=== PATIENT | male | born 1955 | race Caucasian/White ===

== ENCOUNTER 2023-09-05 18:34 | Inpatient (IN) | payer MEDICARE, OTHER, SELFPAY ==
[2023-09-05] VITALS (8 sets, daily range): BP systolic 101–128; BP diastolic 51–68; PULSE 73–80; BMI 23.2; BMI 24.1
--- NOTE | 2023-09-05 15:35 | ED.GENMED ---
History of Present Illness
General
Chief Complaint: Cold/Flu/URI Symptoms
Time Seen by Provider: 09/05/23 15:35
Travel History
Have you had any contact with someone who has COVID-19?: No
Do you have any symptoms of coronavirus? Fever > 100 degrees, chills, cough, shortness of breath, sore throat, loss of taste or smell, muscle aches, or headache?: No
History of Present Illness
History of Present Illness:
HPI: Approximately 3 weeks ago, the patient started having dark urine, general unwell feeling along with some chills. also reports some exertional weakness. The patient denies any shortness of breath or chest pain. He says that he had a
similar event approximately 6 years ago after a tick bite and had a rash and was diagnosed with Lyme disease however at this time he does not have a rash nor any known tick bite. He was in [facility] starting about 2 weeks ago and came back last
night. Early in the trip, he passed out and struck his head but did not go to the hospital. He has not had any neurologic symptoms since that time. He was concerned that he was dehydrated. He states he had a COVID test recently that was negative.
EXAM:
GENERAL: Appears somewhat pale and just slightly weak generally
HEENT: Moist oral mucosa
CARDIOVASCULAR: No murmurs, normal heart rate, regular rhythm, No chest wall tenderness
PULMONARY: No respiratory distress, breath sounds are clear and equal
ABDOMEN: Soft with no peritoneal signs, no tenderness
NEUROLOGIC: Excellent strength all extremities, no coordination deficits
PSYCHIATRIC: Appropriate mental status, normal insight and judgement
EXTREMITIES: Nontender, no edema, moves all extremities equally
SKIN: Appears somewhat pale
TIME OF INITIAL ENCOUNTER: 3:30 PM
NUMBER AND COMPLEXITY OF PROBLEMS ADDRESSED AT THE ENCOUNTER
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
� Acute Exacerbation and/or Progression of Chronic Illness: This is an acute problem
� Differential Diagnosis includes: Bacteremia, viral syndrome prolonged, anemia, ELISABETH, pneumonia, UTI, line
AMOUNT AND/OR COMPLEXITY OF DATA TO BE REVIEWED AND ANALYZED
� I performed an independent evaluation of and my interpretation is:
EKG:
CT:
X-rays: Chest x-ray shows no acute abnormality
Laboratory Studies: White count 4.7, hemoglobin of 7.1, platelet 173, sodium 124, iron 46, TIBC 245, percent saturation 18%, ferritin 1460, no evidence of UTI on urinalysis
Other:
� Review of other/old records: No patient had endoscopy that showed gastritis in 2016
� Clinical information was obtained by an independent historian: Spoke to at bedside
� Prescriptions/Medications Considered but not given:
� Further testing considered but not performed:
RISK OF COMPLICATIONS AND/OR MORBIDITY OR MORTALITY OF PATIENT MANAGEMENT
� Social determinants of health affecting care: Lives at home, recently traveled to [facility]
� Discussion with other providers: Hospitalist for admission
� Escalation of care including admission/observation vs risk of discharge considered: The patient is hemodynamically stable but is found to have a hemoglobin of 7.1. He has heme-negative brown stool. Iron levels are just
slightly low. Ferritin is high. Some urobilinogen noted on urinalysis and he does have a total bili of 2.3 but otherwise LFTs relatively unremarkable with exception of low albumin. LDH elevated. Haptoglobin pending which is a send out.
Phy Exam
Physical Exam
Physical Exam:
See HPI
Course
Orders/Labs/Results
Orders:
Orders
09/05/23 15:47
0.9% Sodium Chloride 1000 ml [Nss] 1,000 ml IV BOLUS
09/05/23 15:48
CR Chest - 2 Views Urgent
Comment:
Reason For Exam: chills
09/05/23 16:12
Complete Blood Count/With Diff Urgent
Comprehensive Metabolic Panel Urgent
Ferritin Urgent
Comment: ADD
Iron Urgent
Comment: ADD
LDH Urgent
Comment: ADD ON
Lactic Acid Q4H
Comment: CANCEL 2nd LACTIC ACID IF 1st LACTIC ACID IS LESS THAN 2
Lyme Progressive Urgent
Serum Osmolality Urgent
Comment: ADD
Total Iron Binding Urgent
Comment: ADD
Blood Culture Q30M
MILADIS Source: Blood/Venous
Specimen Description:
Blood Culture Q30M
MILADIS Source: Blood/Venous
Specimen Description:
09/05/23 16:30
Add On- LAB Urgent
Tests Added?: iron panel, ferritin
* Blood Bank Products Urgent
Blood Bank Products: *Packed RBC Leuko(PRBC's)
Quantity: 2
Transfuse Today: Yes
Reason: Anemia
09/05/23 16:46
Type+Screen Urgent
09/05/23 16:52
Add On- LAB Urgent
Tests Added?: osm
09/05/23 17:02
Osmolality, Random Urine Urgent
Date Specimen was Collected: 09/05/23
Time Specimen was Collected: 16:59
Urinalysis Reflex To Culture Urgent
Date Specimen was Collected: 09/05/23
Time Specimen was Collected: 16:59
Urine Microscopic Reflex Cult Urgent
Urine Sodium Urgent
Date Specimen was Collected: 09/05/23
Time Specimen was Collected: 16:59
09/05/23 17:05
Add On- LAB Urgent
Tests Added?: ldh, haptoglobin
09/05/23 18:20
Admit/Transfer Patient As Directed
Co-Sign Provider:
Level of Care: Inpatient admission
Assign to:: Medical/Surgical
Physician / Group: Hospitalist
Diagnosis: Anemia
Reason for Hospitalization: Symptomatic anemia
Expected length of stay greater than two midnights?: Yes
ELOS- Estimated Length of Stay in days: 3
I certify the patient meets the requirements for IP care: Yes
09/05/23 18:22
Code Status As Directed
Resuscitation Status: Full Code
09/05/23 20:00
Lactic Acid Q4H
Comment: CANCEL 2nd LACTIC ACID IF 1st LACTIC ACID IS LESS THAN 2
Abnormal Lab Results
09/05/23 09/05/23 09/05/23
16:12 16:46 17:02
WBC 4.7 L 10^3/uL
(4.8-10.8)
RBC 2.32 L 10^6/uL
(4.70-6.10)
Hgb 7.1 L g/dL
(13.0-18.0)
Hct 20.4 L* %
(39.0-52.0)
RDW 22.0 H %
(11.5-14.5)
Abs Immat Gran (auto) 0.1 H 10^3/uL
(0-0.05)
Absolute Lymphs (auto) 1.1 L 10^3/uL
(1.2-3.4)
Absolute Monos (auto) 0.8 H 10^3/uL
(0.1-0.6)
Immature Gran % 1.1 H %
(0-0.5)
Monocytes % 16.0 H %
(1.7-9.3)
Sodium 124 L mmol/L
(135-145)
Chloride 96 L mmol/L
(98-107)
Glucose 105 H mg/dl
(70-99)
Serum Osmolality 263 L mOsm/kg
(275-300)
Iron 46 L ug/dl
(49-181)
TIBC 245 L ug/dl
(261-462)
% Saturation 18 L %
(20-50)
Ferritin 1460.0 H ng/ml
(17.9-464.0)
Total Bilirubin 2.3 H mg/dl
(0.2-1.3)
Lactate Dehydrogenase 351 H U/L
(120-246)
Total Protein 6.2 L g/dl
(6.3-8.2)
Albumin 2.8 L g/dl
(3.5-5.0)
Ur Occult Blood Reflex 1+ A
(Negative)
Urine Urobilinogen 2+ A
(Neg - 1+)
Urine Bacteria (Reflex) Few A
(Negative)
Urine Osmolality 227 L mOsm/kg
(300-900)
Urine Sodium 18 L mmol/L
(30-90)
Antibody Screen Positive A
(Negative)
09/05/23 16:12
09/05/23 16:12
Vital Signs
Initial and Last Documented VS:
Initial Vital Signs
Temp Pulse Resp BP Pulse Ox
99.0 F 65 16 109/60 98
09/05/23 13:55 09/05/23 13:55 09/05/23 13:55 09/05/23 13:55 09/05/23 13:55
Last Documented Vital Signs
Temp Pulse Resp BP Pulse Ox
99.0 F 68 16 108/68 99
09/05/23 13:55 09/05/23 19:00 09/05/23 19:00 09/05/23 19:00 09/05/23 19:00
*Critical Care Note
Total Time (30-74mins, 75-104mins- exclusive of procedures): Not Applicable
ED Attending Note
-
Portions of this chart may have been created with voice recognition software.� Occasional wrong word or��sound alike� substitutions may have occurred due to the inherent limitations of voice recognition software.
Discharge Plan
Departure
Patient Disposition: Admit
Date of Disposition: 09/05/23
Time of Disposition: 16:56
Presentation/result/management discussed w/ accepting MD/DO: Hospitalist
Discharge Problem:
Anemia
Interventions
Interventions:
*Risk Screen - Suicide Last Done: 09/05/23 16:11
*General Assessment Last Done: 09/05/23 16:11
*Neglect/Abuse Screening Last Done: 09/05/23 16:11
ED- Fall Risk Assessment Last Done: 09/05/23 16:11
*ED COVID-19 Vaccine History Last Done: 09/05/23 13:55
ED- Pulmonary Assessment Last Done: 09/05/23 16:11
[2023-09-05] MEDS: NSS 1000 IV ×2 (16:18→20:39)
[2023-09-05 16:25] LABS: % Basophils 0.4 % (0-2); % Eosinophils 0.2 % (0-6); % Immature Granulocytes 1.1 % (0-0.5); % Lymphocytes 24.1 % (20.5-51.1); % Neutrophils 58.2 % (42.2-75.2); Absolute Immature Granulocytes 0.1 10^3/uL (0-0.05); Absolute Lymphocytes 1.1 10^3/uL (1.2-3.4); Absolute Monocytes 0.8 10^3/uL (0.1-0.6); Absolute Neutrophils 2.7 10^3/uL (1.4-6.5); Hemoglobin 7.1 g/dL (13.0-18.0); Mean Corp Hgb Conc. 34.8 g/dL (33.0-37.0); Mean Corpuscular Hgb 30.6 pg (27.0-31.0); Mean Corpuscular Volume 87.9 fL (80.0-94.0); Mean Platelet Volume 10.4 fL (7.4-10.4); Nucleated Red Blood Cells % 0 % (-); Platelet Count 173 10^3/uL (130-400); Red Blood Cell Count 2.32 10^6/uL (4.70-6.10); White Blood Cell Count 4.7 10^3/uL (4.8-10.8)
[2023-09-05 16:26] LABS: Hematocrit 20.4 % (39.0-52.0)
[2023-09-05 16:42] LABS: Lactic Acid 1.4 mmol/L (0.7-2.0)
[2023-09-05 16:47] LABS: ALT (SGPT) 33 U/L (0-50); AST (SGOT) 58 U/L (17-59); Albumin 2.8 g/dl (3.5-5.0); Alkaline Phosphatase 67 U/L (38-126); Blood Urea Nitrogen 18 mg/dl (9-20); Calcium 8.4 mg/dl (8.4-10.2); Carbon Dioxide 23 mmol/L (22-30); Chloride 96 mmol/L (98-107); Estimated Creatinine Clearance 72 ml/min; Glucose 105 mg/dl (70-99); Potassium 4.6 mmol/L (3.5-5.1); Sodium 124 mmol/L (135-145); Total Bilirubin 2.3 mg/dl (0.2-1.3); Total Protein 6.2 g/dl (6.3-8.2); eGFR > 60.00
[2023-09-05 17:07] LABS: Iron 46 ug/dl (49-181)
[2023-09-05 17:14] LABS: Urine Albumin Negative (Neg - Trace); Urine Bilirubin Negative (Negative); Urine Character Clear (Clear); Urine Color Yellow; Urine Glucose Negative (Negative); Urine Ketone Negative (Negative); Urine Leukocyte Negative (Negative); Urine Nitrite Negative (Negative); Urine Occult Blood 1+ (Negative); Urine Specific Gravity 1.005 (<1.030); Urine Urobilinogen 2+ (Neg - 1+)
[2023-09-05 17:16] LABS: Osmolality Serum 263 mOsm/kg (275-300); Percent Saturation 18 % (20-50); Total Iron Binding Capacity 245 ug/dl (261-462)
[2023-09-05 17:22] LABS: Osmolality Urine 227 mOsm/kg (300-900)
[2023-09-05 17:23] LABS: Urine Bacteria Few (Negative); Urine Red Blood Cell 0-2 /HPF (0-2); Urine Squamous Cell 0-2 /LPF (Few); Urine White Cell 0-2 /HPF (0-5)
[2023-09-05 17:30] LABS: LDH 351 U/L (120-246)
[2023-09-05 17:30] LABS: Urine Sodium 18 mmol/L (30-90)
--- NOTE | 2023-09-05 17:50 | HPS.HSE ---
Family Physician
-
Family Physician: Edis Urrutia
Chief Complaint
-
Weakness and fever.
History of Present Illness
67 man who 3 weeks ago started having dark urine, a general unwell feeling along with some chills and exertional weakness. He denies any shortness of breath or chest pain. He says that he had a similar event approximately 6 years ago after a tick
bite and had a rash and was diagnosed with Lyme disease however at this time he does not have a rash nor any known tick bite. He has had a COVID test recently that was negative. He is vegan and has had decreased PO intake over the last few weeks
due to travel. One year ago his hemoglobin was 12. A workup was not done.
Medical History
Past Medical History
Past Medical History: Reports None
Additional Past Medical History:
High cholesterol
Essential HTN
Past Surgical History: Reports None
Social History
Tobacco: Non-smoker
Alcohol: Occasional
Drug: None
Personal:
Living: With Family
Employment: Retired
Family History
Family History: Not pertinent
Allergies / Home Medications
Allergies reflects when Allergies were last updated in [facility].
Home Medications with original date entered in [facility]
Allergy/Medication List:
Allergies
Allergy/AdvReac Type Severity Reaction Status Date / Time
No Known Allergies Allergy Unverified 09/05/23 13:53
Home Medications
Biotrue Eye Drops (Pf) 1 drp BOTH EYES DAILY 09/05/23
acetaminophen 500 mg tablet (Tylenol Extra Strength) 500 mg PO BIDPRN PRN mild pain/fever 09/05/23
aspirin 81 mg tablet,delayed release 81 mg PO DAILY 09/05/23
coenzyme Q10 100 mg capsule (CoQ-10) 100 mg PO DAILY 09/05/23
rosuvastatin 10 mg tablet 10 mg PO DAILY 09/05/23
telmisartan 20 mg tablet 20 mg PO HS 09/05/23
Review of Systems
-
History Source: Patient
A 12 point ROS was completed and negative except as noted: Yes
Physical Exam
Vital Signs
Vital Signs
Temp Pulse Resp BP Pulse Ox
99.0 F 57 14 120/65 100
09/05/23 13:55 09/05/23 16:15 09/05/23 16:15 09/05/23 16:02 09/05/23 16:15
Physical Exam
General: Well Developed, No Apparent Distress, Comfortable and Conversant
HEENT: Moist mucous membranes, Atraumatic, Good Dentition, No Ptosis, Nose Appears Normal and Ears Appear Normal
Respiratory: Clear
Cardiac: S1/S2 and Regular Rhythm
GI: Soft, Non Tender and Non Distended
Musculoskeletal: No Clubbing, No Cyanosis and No Edema
Skin: Warm and Dry; No Rash or Jaundice
Neuro: Awake, Alert, Oriented and AO x 3
Psych: Calm
Laboratory Results
-
09/05/23 16:12
09/05/23 16:12
Laboratory Results
Lactic Acid 1.4 mmol/L (0.7-2.0) 09/05/23 16:12
Total Bilirubin 2.3 mg/dl (0.2-1.3) H 09/05/23 16:12
AST 58 U/L (17-59) 09/05/23 16:12
ALT 33 U/L (0-50) 09/05/23 16:12
Alkaline Phosphatase 67 U/L (38-126) 09/05/23 16:12
Data Reviewed
-
Lab Data: Labs Reviewed by me
Impression/Plan
-
IMPRESSION:
67 man with symptomatic anemia and h/o fever.
H/H 7.1/20.4
Na 124
MCV 87.9
RDW 22.0
Iron 46 (low)
TIBC 245 (low)
%sat 18% (low)
LDH 351
Alb 2.8
total trice 2.3 (high)
Ferritin pending
PLAN:
1. Symptomatic anemia - iron studies still being processed
There's evidence of both low iron stores and red cell destruction
This could be a viral illness on top of mal-nutrition
Plan is to wait for results of remaining studies
Once all data is available, discuss results with hematology
In meantime:
transfuse two units of PRBC
IV fluids
Supportive care
Hold ASA
2. Hyponatremia - likely hypovolemic hyponatremia
IV saline
Recheck in am
3. Low albumin, likely malnutrition, however there is a concern for cancer
Other possibilities include:
GIB
Leukemia
celiac disease
Atypical infection
VCD for DVTp
Full code
[2023-09-05 20:18] LABS: Hemoglobin 7.2 g/dL (13.0-18.0)
[2023-09-05 20:22] LABS: Hematocrit 20.1 % (39.0-52.0)
[2023-09-05 20:28] LABS: Lactic Acid 0.9 mmol/L (0.7-2.0)
[2023-09-05] MEDS: PROTONIX 40 MG PO (20:38)
[2023-09-05 21:41] LABS: Folate 8.6 ng/ml (2.76-20); Vitamin B12 165 pg/ml (239-931)
[2023-09-05] MEDS: TYLENOL 500 MG PO (22:36)
--- NOTE | 2023-09-05 22:56 | PTCARENOTE ---
Received pt from ER at 2014. Pt AAOx3, VSS, ambulatory in room. Blood bank called stating blood needs to come from [place] and would take a day or two. Pt informed and agreeable. Oriented to room, call banks and plan of care.
[2023-09-06] VITALS (11 sets, daily range): BP systolic 91–122; BP diastolic 47–73; PULSE 64–102; BMI 24.1
[2023-09-06] MEDS: NSS 1000 IV ×3 (05:17→19:25)
[2023-09-06 06:04] LABS: IgA 500 mg/dl (70-400)
[2023-09-06] MEDS: PROTONIX 40 MG PO ×2 (08:13→19:18)
[2023-09-06] MEDS: REFRESH EYE DROPS (PF) 1 DROPS BOTH EYES (08:14)
[2023-09-06 08:29] LABS: % Basophils 0.4 % (0-2); % Eosinophils 0.4 % (0-6); % Immature Granulocytes 1.1 % (0-0.5); % Lymphocytes 30.5 % (20.5-51.1); % Monocytes 20.7 % (1.7-9.3); % Neutrophils 46.9 % (42.2-75.2); Absolute Immature Granulocytes 0.1 10^3/uL (0-0.05); Absolute Lymphocytes 1.4 10^3/uL (1.2-3.4); Absolute Neutrophils 2.2 10^3/uL (1.4-6.5); Mean Corp Hgb Conc. 35.8 g/dL (33.0-37.0); Mean Corpuscular Hgb 31.8 pg (27.0-31.0); Mean Corpuscular Volume 88.7 fL (80.0-94.0); Mean Platelet Volume 11.4 fL (7.4-10.4); Nucleated Red Blood Cells % 0 % (-); Platelet Count 154 10^3/uL (130-400); Red Blood Cell Count 1.95 10^6/uL (4.70-6.10); Red Cell Dist. Width 21.7 % (11.5-14.5); White Blood Cell Count 4.7 10^3/uL (4.8-10.8)
[2023-09-06 08:37] LABS: Hemoglobin 6.2 g/dL (13.0-18.0)
[2023-09-06 08:38] LABS: Hematocrit 17.3 % (39.0-52.0)
[2023-09-06 08:47] LABS: ALT (SGPT) 26 U/L (0-50); AST (SGOT) 48 U/L (17-59); Albumin 2.2 g/dl (3.5-5.0); Alkaline Phosphatase 52 U/L (38-126); Blood Urea Nitrogen 12 mg/dl (9-20); Calcium 7.9 mg/dl (8.4-10.2); Carbon Dioxide 20 mmol/L (22-30); Chloride 103 mmol/L (98-107); Estimated Creatinine Clearance 81 ml/min; Glucose 94 mg/dl (70-99); Potassium 4.4 mmol/L (3.5-5.1); Sodium 127 mmol/L (135-145); Total Bilirubin 2.6 mg/dl (0.2-1.3); Total Protein 5.3 g/dl (6.3-8.2); eGFR > 60.00
--- NOTE | 2023-09-06 11:49 | CM ---
Patient seen at bedside with present. Patient indicated that he lives with his in a 2 story home. Patient _PCP is Dr. Urrutia and he uses the [facility] in [place]. Patient has no DME and is retired and independent/driving prior to
admission. Patient indicated that he was planning on discharge home with no needs. CM will continue to follow for discharge planning needs.
Plan; home with VN vs home with no needs.
[2023-09-06] MEDS: TYLENOL 500 MG PO ×2 (13:20→22:01)
[2023-09-06 13:42] LABS: Total Cells Counted 100
[2023-09-06 13:43] LABS: Hypochromasia 2+; Lymphocytes 21 % (20-51); Monocytes 3 % (2-9); Normal RBC Morphology No; Platelets Checked Yes; Segmented Neutrophils 75 % (42-75); Target Cells 1+
[2023-09-06 14:39] LABS: Lyme Antibody Screen, EIA Presump. Positive (Negative)
[2023-09-06 15:46] LABS: Reticulocyte Count 11.1 % (0.4-2.8)
--- NOTE | 2023-09-06 17:10 | W.PN.HOSP.TC ---
Addendum entered and electronically signed by Solange Gomez MD 09/06/23 19:55:
Patient seen and examined independently--agree with plan set forth by Dr. Peñaloza with exceptions in bold
GENERAL: well developed, well nourished, male in no apparent distress
HEENT: NC/AT--sallow appearing
HEART: regular rate and rhythm, +S1, +S2--no murmurs
LUNGS : clear to auscultation bilaterally
ABDOM: soft, nontender, nondistended, + bowel sounds
EXT: no cyanosis, clubbing, or edema
NEUROLOGIC: grossly intact
Symptomatic anemia--with dark urine, elevated Tbili, fevers, iron studies c/w chronic disease--strongly suspect hemolysis as cause--Hb 7.2 yesterday, dropped to 6.2 today--reticulocyte count 11.1, haptoglobin pending--waiting for blood from [facility]--retic count added by us, smears for malaria and Babesia (due to fevers) as well as RBC morphology revealed positive Babesiosis-- vitamin B12 deficiency likely due to his vegan diet--start repletion--Positive IgA, this may represent autoimmune
process. Endomysial IgA, TTG IgG and IgA are pending--heme consult pending--will also consult ID given Babesiosis--await treatment options
Hyponatremia--likely due to poor PO intake--cont IVF--improved with fluids--Likely hypovolemic hyponatremia--Follow BMP.
Low albumin--Likely malnutrition from Vegan diet --no hx of CLL--Follow BMP
code status -- FULL CODE
Original Note:
Today's Communication/Plan
-
Continue IV fluid and monitor BMP
Blocks may positive for Babesia, ID consult
Monitor H&H while awaiting PRBC transfusion
Assessment / Plan
Assessment / Plan
ASSESSMENT: 67-year-old male admitted 09/05/2023 with symptomatic anemia (Hb 7.2) and dark urine for 2 weeks. Reports intermittent fever and chills that responds to Tylenol for the past few days. Recent travel to [place], returned 2 days ago and
feeling unwell.
Impression/Plan:
Symptomatic anemia
-Hb 7.2 yesterday, dropped to 6.2 today, HCT 17.3, RDW 21.7, reticulocyte count 11.1, haptoglobin pending.
-Iron studies most likely represents anemia of chronic disease vs acute parasitic infection vs vitamin B12 deficiency, acute blood loss less likely.
-Positive IgA, this may represent autoimmune process. Endomysial IgA, TTG IgG and IgA are pending.
-Dark urine resolved per patient.
-Peripheral blood smear positive for Babesia.
-ID consult.
-Start vitamin B12.
-Follow H&H.
-Hematology consult.
-Lyme serology pending
-Blood type A+, awaiting blood from [facility], was told it takes 1 or 2 days. Transfuse 2 units PRBC.
-Continue IV fluid.
Hyponatremia
-Improved with IV fluid.
-Likely hypovolemic hyponatremia.
-Continue IV normal saline.
-Follow BMP.
Low albumin
-Likely malnutrition vs cancer given history of CLL.
-Follow BMP
Anticipated Discharge: > 48 hours
Subjective/Interval History
-
Date of Service: September 06, 2023
Objective Data
-
Labs:
Laboratory Results
09/06/23
07:42
WBC 4.7 L
Hgb 6.2 L*
Hct 17.3 L*
Plt Count 154
Sodium 127 L
Potassium 4.4
Chloride 103
Carbon Dioxide 20 L
BUN 12
Creatinine 0.8
Glucose 94
Calcium 7.9 L
Total Bilirubin 2.6 H
AST 48
ALT 26
Alkaline Phosphatase 52
Vital Signs:
Vital Signs
Temp Pulse Resp BP Pulse Ox
101.9 F H 72 16 102/51 93
09/06/23 16:12 09/06/23 16:12 09/06/23 16:12 09/06/23 16:12 09/06/23 16:12
I&O
09/05/23 09/06/23 09/07/23
06:59 06:59 06:59
Intake Total 1000 / 1000
Balance 1000 / 1000
Review of Systems
-
History Source: Patient and Family ()
All other systems: Not reviewed unless documented
Constitutional: Reports Fatigue; Denies Fever
Respiratory: Reports No Symptoms; Denies Cough, Hemoptysis or Wheezing
Cardiac: Reports No Symptoms; Denies Chest Pain or Palpitations
Abdomen/GI: Reports No Symptoms; Denies Abdominal Pain, Nausea or Vomiting
Physical Exam
-
General: No Apparent Distress and Comfortable; Negative Pain
Respiratory: Clear to Auscultation; Negative Wheezes, Rales or Crackles
Cardiac: Regular Rhythm and S1/S2; Negative Murmur or Rub
GI: Soft, Nontender, Nondistended and Normal Bowel Sounds
Musculoskeletal: No Cyanosis and No Edema; Negative Clubbing
Skin: Warm
Neuro: Awake, Alert and AO x 3
Psych: Calm
Data Reviewed
-
Diagnostic Radiology: Report Reviewed by me and Discussed with Physician
Labs: Labs Reviewed by me and Discussed with Physician
Old Records: Reviewed
[2023-09-06] MEDS: ZITHROMAX 255 MG IV (20:39)
[2023-09-06] MEDS: VIBRAMYCIN 100 MG PO (20:46)
[2023-09-06] MEDS: MEPRON SUSPENSION 750 MG PO (20:59)
[2023-09-07] VITALS (9 sets, daily range): BP systolic 95–119; BP diastolic 54–61
[2023-09-07] MEDS: VIBRAMYCIN 100 MG PO ×2 (08:03→19:14)
[2023-09-07] MEDS: REFRESH EYE DROPS (PF) 1 DROPS BOTH EYES (08:03)
[2023-09-07] MEDS: PROTONIX 40 MG PO ×2 (08:03→19:14)
[2023-09-07] MEDS: MEPRON SUSPENSION 750 MG PO ×2 (08:04→19:13)
[2023-09-07] MEDS: CYANOCOBALAMIN 1000 MCG IM (08:04)
[2023-09-07 08:51] LABS: % Basophils 0.6 % (0-2); % Eosinophils 0.3 % (0-6); % Immature Granulocytes 1.1 % (0-0.5); % Lymphocytes 32.7 % (20.5-51.1); % Monocytes 15.6 % (1.7-9.3); % Neutrophils 49.7 % (42.2-75.2); Absolute Immature Granulocytes 0.1 10^3/uL (0-0.05); Absolute Lymphocytes 2.1 10^3/uL (1.2-3.4); Absolute Neutrophils 3.2 10^3/uL (1.4-6.5); Hematocrit 23.6 % (39.0-52.0); Mean Corp Hgb Conc. 35.6 g/dL (33.0-37.0); Mean Corpuscular Hgb 30.9 pg (27.0-31.0); Mean Corpuscular Volume 86.8 fL (80.0-94.0); Mean Platelet Volume 11.6 fL (7.4-10.4); Nucleated Red Blood Cells % 0.3 % (-); Platelet Count 145 10^3/uL (130-400); Red Blood Cell Count 2.72 10^6/uL (4.70-6.10); Red Cell Dist. Width 20.8 % (11.5-14.5); White Blood Cell Count 6.5 10^3/uL (4.8-10.8)
[2023-09-07 09:00] LABS: Hemoglobin 8.4 g/dL (13.0-18.0)
--- NOTE | 2023-09-07 09:36 | CM ---
Patient seen at room. Patient meeting with Hemoncologist at this time. CM will continue to follow for discharge planning needs.
Plan; home with family vs home with VN
--- NOTE | 2023-09-07 09:53 | W.PN.HOSP.TC ---
Addendum entered and electronically signed by Solange Gomez MD 09/07/23 13:50:
Patient seen and examined independently--agree with plan set forth by Dr. Peñaloza
GENERAL: well developed, well nourished, male in no apparent distress
HEENT: NC/AT--sallow appearing
HEART: regular rate and rhythm, +S1, +S2--no murmurs
LUNGS : clear to auscultation bilaterally
ABDOM: soft, nontender, nondistended, + bowel sounds
EXT: no cyanosis, clubbing, or edema
NEUROLOGIC: grossly intact
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
his vegan diet--start repletion--Positive IgA, this may represent autoimmune process although unclear-- Endomysial IgA, TTG IgG and IgA are pending--apprec heme/ID
Babesiosis--likely cause of fevers--apprec ID--cont atovaquone, doxy, zithromax--follow parasite load/smears--lyme also presumptively positive, await definitive results
Hyponatremia--likely due to poor PO intake--stop IVF---Likely hypovolemic hyponatremia
Low albumin--Likely moderate malnutrition from Vegan diet --albumin 2.2
code status -- FULL CODE
Original Note:
Today's Communication/Plan
-
Monitor H&H and transfuse if necessary
Follow LDH
Haptoglobin level, celiac disease panel, Lyme serology pending
Continue antibiotics
ECG in a.m.
Tylenol as needed
Assessment / Plan
Assessment / Plan
ASSESSMENT: 67-year-old male admitted 09/05/2023 with symptomatic anemia (Hb 7.2) and dark urine for 2 weeks. Reports intermittent fever and chills that responds to Tylenol for the past few days. Recent travel to [place], [place] and [place].patient
reports working in the [employer] prior to having symptoms.
Impression/Plan:
Symptomatic anemia
-Dark urine on presentation (resolved), with elevated T. bili, intermittent fever and chills.
-Peripheral blood smear positive for Babesia.
-Hb improved to 8.4, s/p transfusion of 2 units PRBC.
-LDH 475, reticulocyte count 11.1, haptoglobin pending. Anemia strongly suggestive of hemolysis from parasitic infection vs vitamin B12 deficiency. Acute blood loss less likely.
-Baseline ECG unremarkable, no QTc prolongation at baseline.
-Started atovaquone, doxycycline, and azithromycin for co-infection infection prophylaxis.
-ECG in a.m.
-ID consult.
-Follow H&H.
-Hematology consult.
-Continue IV fluid.
Infection with Babesia
-Peripheral blood smear with 0.3% parasitemia, repeats parasite count 1%.
-Most likely contributed to severe anemia, although this does not explain hemoglobin of 3.0, there may be other hemolytic processes going on.
-Lyme serology pending.
-Positive IgA, may represent autoimmune process.
-Endomysial IgA, TTG IgG and IgA pending.
-Monitor H&H and follow LDH.
-Blood parasite in a.m.
Vitamin B12 deficiency
-Continue vitamin B12 supplementation.
Hyponatremia
-Improved with IV fluid.
-Likely hypovolemic hyponatremia.
-Continue IV normal saline.
-Follow BMP.
Low-grade fever
-Intermittent fever as high as 101.3
-Tylenol as needed.
Low albumin
-Likely malnutrition vs cancer.
-Follow BMP
Anticipated Discharge: 24 - 48 hours
Subjective/Interval History
-
Date of Service: September 07, 2023
Objective Data
-
Labs:
Laboratory Results
09/07/23
08:27
WBC 6.5
Hgb 8.4 L D
Hct 23.6 L
Plt Count 145
Sodium Pending
Potassium Pending
Chloride Pending
Carbon Dioxide Pending
BUN Pending
Creatinine Pending
Glucose Pending
Calcium Pending
Vital Signs:
Vital Signs
Temp Pulse Resp BP Pulse Ox
99.2 F 74 16 115/61 94
09/07/23 07:05 09/07/23 07:05 09/07/23 07:05 09/07/23 07:05 09/07/23 07:05
I&O
09/06/23 09/07/23 09/08/23
06:59 06:59 06:59
Intake Total 1000 / 1000 2410 / 2410
Balance 1000 / 1000 2410 / 2410
Review of Systems
-
History Source: Patient
All other systems: Not reviewed unless documented
Constitutional: Reports Fever (Intermittent ) and Fatigue
EENT: Reports No Symptoms Reported
Respiratory: Reports No Symptoms; Denies Cough, Hemoptysis or Wheezing
Cardiac: Reports No Symptoms; Denies Chest Pain or Palpitations
Abdomen/GI: Reports No Symptoms; Denies Abdominal Pain, Nausea or Vomiting
Genitourinary: Reports No Symptoms
Skin: Reports No Symptoms
Endocrine: Reports No Symptoms
Physical Exam
-
General: No Apparent Distress and Comfortable; Negative Well Nourished or Pain
HEENT: Atraumatic and Moist Mucous Membranes
Respiratory: Clear to Auscultation; Negative Wheezes, Rales or Crackles
Cardiac: Regular Rhythm and S1/S2; Negative Murmur or Rub
GI: Soft, Nontender, Nondistended and Normal Bowel Sounds
Musculoskeletal: No Cyanosis and No Edema; Negative Clubbing
Skin: Warm
Neuro: Awake, Alert and AO x 3
Psych: Calm and Intact Judgement/Insight
Data Reviewed
-
Diagnostic Radiology: Report Reviewed by me and Discussed with Physician
Labs: Labs Reviewed by me and Discussed with Physician
Old Records: Reviewed
[2023-09-07 10:09] LABS: Blood Urea Nitrogen 12 mg/dl (9-20); Calcium 8.2 mg/dl (8.4-10.2); Carbon Dioxide 22 mmol/L (22-30); Chloride 101 mmol/L (98-107); Estimated Creatinine Clearance 81 ml/min; Glucose 112 mg/dl (70-99); LDH 457 U/L (120-246); Potassium 4.5 mmol/L (3.5-5.1); Sodium 128 mmol/L (135-145); eGFR > 60.00
--- NOTE | 2023-09-07 10:32 | CON.ONC ---
Impression
Impression
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
Plan
Plan
Great call by primary team. Babesiosis confirmd on thin smears. Add folic acid til he recovers to normal HGB; he is switching to pescatarian-based diet though would replete B12 daily while he is here as is ordered. PBS notes rare inclusion
bodies-- marked reticulocytes and mild degree of target cells w/o hypersegmentation of the neutrophils. Recovering well on appropriate antibiotic therapy. Will follow.
Patient History
History of Present Illness
67-year-old white male admitted with progressive fatigue with a history of recurrent fevers to 102 following a recent trip to [place]. 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
areas. He does not recall a specific tick bite of recent though has been diagnosed with Lyme disease in the past. There is no personal nor family history of blood dyscrasias. He does note that his laboratory studies document low normal
hemoglobins for several years in the range of 12 g/dL. 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 He has remained free of platelet disorder since. He notes a 35-year history of strict vegan
dieting for which he does not supplement oral B12.
Additional lab studies on admission noted HGB 7.1 falling to 6.2 prior to transfusion of 2 units pRBCs with expected 2 gram increment. His reticulocyte count was elevated 11% with haptoglobin pending. His B12 level is low and folate normal. His T
bili is elevated w/o fractionation available. LDH is mildly elevated wit evidence of urobilinogen in the UA. 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 Iron saturation is low as expected in acute
illness with elevated iron indicating adequate iron stores.
Past-Medical/Surgical History
splenectomy; Lyme dz; HTN;hyperlipidemia; cervical laminectomy for spinal canal stenosis
Patient Medication
�Medication �Instructions �Recorded �Confirmed �Last Taken �Type
Biotrue Eye Drops (Pf) 1 p BOTH EYES DAILY Eye Condition 09/05/23 09/05/23 09/05/23 History
acetaminophen 500 mg tablet 500 mg PO BIDPRN PRN mild 09/05/23 09/05/23 09/05/23 History
(Tylenol Extra Strength) pain/fever
aspirin 81 mg tablet,delayed 81 mg PO DAILY Blood Clot 09/05/23 09/05/23 09/05/23 History
release Prevention/Tx
coenzyme Q10 100 mg capsule 100 mg PO DAILY Supplement 09/05/23 09/05/23 09/05/23 History
(CoQ-10)
rosuvastatin 10 mg tablet 10 mg PO DAILY High Cholesterol 09/05/23 09/05/23 09/05/23 History
telmisartan 20 mg tablet 20 mg PO HS Blood Pressure 09/05/23 09/05/23 09/04/23 History
Active Medications
Generic Name Dose Route Start Last Admin
Trade Name Freq PRN Reason Stop Dose Admin
Acetaminophen 500 mg 09/05/23 19:58 09/06/23 22:01
Acetaminophen 500 Mg Tablet PO 10/03/23 19:57 500 mg
BIDPRN PRN Administration
mild pain/fever
Artificial Tears 1 drops 09/06/23 08:00 09/07/23 08:03
Artificial Tears Pf (Refresh) 10 Drop Droperette BOTH EYES 10/04/23 07:59 1 drops
DAILY LEÓN Administration
Atovaquone 750 mg 09/06/23 21:00 09/07/23 08:04
Atovaquone 750 Mg/5 Ml Oral Suspension Cup PO 09/16/23 20:59 750 mg
Q12 LEÓN Administration
Azithromycin 500 mg 09/07/23 20:00
Azithromycin 250 Mg Tablet PO
DAILY@2000 LEÓN
Cyanocobalamin 1,000 mcg 09/07/23 08:00 09/07/23 08:04
Cyanocobalamin (1000 Mcg/Ml) 1 Ml Vial IM 10/05/23 07:59 1,000 mcg
DAILY LEÓN Administration
Doxycycline Hyclate 100 mg 09/06/23 21:00 09/07/23 08:03
Doxycycline 100 Mg Capsule PO 100 mg
Q12 LEÓN Administration
Pantoprazole Sodium 40 mg 09/05/23 20:00 09/07/23 08:03
Pantoprazole 40 Mg Delayed Release Tablet PO 10/03/23 19:59 40 mg
BID LEÓN Administration
Sodium Chloride 0 flush 09/05/23 21:00
Sodium Chloride 0.9% (Flush) Syringe IV 10/03/23 20:59
PER PROTOCOL LEÓN
Review of Systems
-
History Source: Patient and Family
All Other Systems: Reviewed and Negative
Physical Exam
-
General: Well Developed
HEENT: Moist Mucous Membranes
Cardiology: Normal Sinus Rhythm
Pulmonary: Clear
GI: Soft and Normal Bowel Sounds
Musculoskeletal: No Clubbing, No Cyanosis and No Edema
Neurology: Non Focal
Psych: Calm
Labs
Lab Results
WBC 6.5 10^3/uL (4.8-10.8) 09/07/23 08:27
RBC 2.72 10^6/uL (4.70-6.10) L 09/07/23 08:27
Hgb 8.4 g/dL (13.0-18.0) L D 09/07/23 08:27
Hct 23.6 % (39.0-52.0) L 09/07/23 08:27
MCV 86.8 fL (80.0-94.0) 09/07/23 08:27
MCH 30.9 pg (27.0-31.0) 09/07/23 08:27
MCHC 35.6 g/dL (33.0-37.0) 09/07/23 08:27
RDW 20.8 % (11.5-14.5) H 09/07/23 08:27
Plt Count 145 10^3/uL (130-400) 09/07/23 08:27
MPV 11.6 fL (7.4-10.4) H 09/07/23 08:27
Abs Immat Gran (auto) 0.1 10^3/uL (0-0.05) H 09/07/23 08:27
Absolute Neuts (auto) 3.2 10^3/uL (1.4-6.5) 09/07/23 08:27
Absolute Lymphs (auto) 2.1 10^3/uL (1.2-3.4) 09/07/23 08:27
Absolute Monos (auto) 1.0 10^3/uL (0.1-0.6) H 09/07/23 08:27
Absolute Eos (auto) 0.0 10^3/uL (0-0.7) 09/07/23 08:27
Absolute Basos (auto) 0.0 10^3/uL (0-0.2) 09/07/23 08:27
Immature Gran % 1.1 % (0-0.5) H 09/07/23 08:27
Neutrophils % 49.7 % (42.2-75.2) 09/07/23 08:27
Lymphocytes % 32.7 % (20.5-51.1) 09/07/23 08:27
Monocytes % 15.6 % (1.7-9.3) H 09/07/23 08:27
Eosinophils % 0.3 % (0-6) 09/07/23 08:27
Basophils % 0.6 % (0-2) 09/07/23 08:27
Creatinine 0.8 mg/dL (0.7-1.3) 09/07/23 08:27
Vital Signs
Vital Signs
Temp Pulse Resp BP Pulse Ox
99.2 F 74 16 115/61 94
09/07/23 07:05 09/07/23 07:05 09/07/23 07:05 09/07/23 07:05 09/07/23 07:05
--- NOTE | 2023-09-07 10:53 | CON.ID ---
Consultation
-
Date/Time Consultation Requested: 09/06/23 17:08
Date/Time Consultation Performed: 09/07/23 10;53
Requesting Provider: Dr Peñaloza
Performing Provider: Dr Lemons
Reason for Consultation: Babesiosis
Chief Complaint / Past History
Chief Complaint
Weakness and fever.
History of Present Illness
Mr Morton is a 67 year old male with remote history of splenecotmy and lyme disease, otherwise he is generally healthy. He presents here for several weeks of malaise, nausea/vomiting, night sweats. 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 He did not see a tick bite or rash. He did not initially seek medical care. He is very clear that after these symptoms began then he traveled to [place] - [facility] and [facility]. He stayed in the city
while in [place] did not spend any time in rural areas, woody/brushy areas and had no insect/tick bites. While there he progressed to anorexia and did have an episode of fainting. He reports he was dehydrated and standing for a prolonged period
while listening to a tourist information assistant. He fainted, without head strike, immediatealy awoke. 999 (their 911) was called, he was referred to urgent care who referred him to ER, by which point he had been feeling well for some time so he declined. Since
returnign he has noted progression of symptoms and developed dark urine, chills, weakness, anorexia. Outpatient COVID testing negative.
Of note he was a vegan but tells me that after this episode - 'Im a vegan no more!'
Since arrival here he has been spiking fevers to a tmax of 102.8 orally - curve is now improving, BP with intermittent mild hypotension, wbc on arrival 4.7 now 6.5, hgb initially 7.1 with reported baseline at 12 about 1 year ago, plt 173 now 145,
LDH 457, retic count 11.1, haptoglobin pending, t no;o 2/6. ast 48, alt 26, alk phos 52, cr 0.8, lactic acid 1.4, babesia smear positive at 0.3% on arrival - remains positive today, percentage was not listed, lyme serologies are presumptively
positive, CXR: no infiltrates, IgA level run and was 500, blood cultures no growth at 24 hours
Past History
Additional Past Medical History:
HLD
HTN
Remote history of ITP - 1980s resolved
Additional Past Surgical History:
Splenectomy 1982
Laminectomy C3-C5
Allergy History:
No Known Allergies Allergy (Unverified 09/05/23 13:53)
Medications Reviewed: Yes
Social History
Tobacco: Non-Smoker
Alcohol: Occasional
Drug: None
Family History
Family History: Not Pertinent
Review of Systems
Review of Systems
General: Fever and Chills
All systems: All other systems were reviewed and were negative
Vital Signs
Temp Pulse Resp BP Pulse Ox
99.2 F 74 16 115/61 94
09/07/23 07:05 09/07/23 07:05 09/07/23 07:05 09/07/23 07:05 09/07/23 07:05
Physical Exam
Physical Exam
Constitutional: No Acute Distress
Cardiovascular: Regular Rate and S1/S2; Negative Murmur or Rub
Pulmonary: Clear and Symmetric; Negative Wheezes, Rales or Rhonchi
Gastrointestinal: Soft, Non Tender, Non Distended and Normal Bowel Sounds
Skin: Warm and Dry; Negative Rash or Jaundice
Neurological: AO x 3
Lab / Diagnostic Study Results
09/07/23 08:27
09/07/23 08:27
Abs Immat Gran (auto) 0.1 10^3/uL (0-0.05) H 09/07/23 08:27
Absolute Neuts (auto) 3.2 10^3/uL (1.4-6.5) 09/07/23 08:27
Absolute Lymphs (auto) 2.1 10^3/uL (1.2-3.4) 09/07/23 08:27
Absolute Monos (auto) 1.0 10^3/uL (0.1-0.6) H 09/07/23 08:27
Absolute Basos (auto) 0.0 10^3/uL (0-0.2) 09/07/23 08:27
Total Counted 100 09/06/23 07:42
Immature Gran % 1.1 % (0-0.5) H 09/07/23 08:27
Neutrophils % 49.7 % (42.2-75.2) 09/07/23 08:27
Lymphocytes % 32.7 % (20.5-51.1) 09/07/23 08:27
Monocytes % 15.6 % (1.7-9.3) H 09/07/23 08:27
Eosinophils % 0.3 % (0-6) 09/07/23 08:27
Basophils % 0.6 % (0-2) 09/07/23 08:27
Segmented Neutrophils 75 % (42-75) 09/06/23 07:42
Band Neutrophils Not Reportable 09/06/23 07:42
Lymphocytes (Manual) 21 % (20-51) 09/06/23 07:42
Basophils (Manual) 1 % 09/06/23 07:42
Lactic Acid 0.9 mmol/L (0.7-2.0) 09/05/23 20:11
Ur Squamous Epith Cells 0-2 /LPF (Few) 09/05/23 17:02
Microbiology Results
Micro:
09/07/23 08:27 Blood Parasites Smear - Preliminary
Blood/Venous Babesia species 1.0%
09/06/23 15:23 Blood Parasites Smear - Final
Blood/Venous Babesia species 0.3%
09/05/23 16:12 Blood Culture - Preliminary
Blood/Venous No Growth in 24 hours- Final report to follow
09/05/23 16:12 Blood Culture - Preliminary
Blood/Venous No Growth in 24 hours- Final report to follow
Assessment / Plan
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
Remote history of lyme disease
- h/o splenectomy 1983 for ITP
- babesia smear positive at 0.3% yesterday and 1% today - improvement may take some time. LDH is elevated as expected; has a brisk reticulocytosis, haptoglobin pending expect it to be elevated
- Note improvement in symptoms and fever curve which is reassuring.
- continue to repeat smears/cbc regularly; would do tomorrow and then every two days if he remains inpatient. Serial LDHs not needed from my perspective.
- s/p two units of prbcs
- QTc 405
- continue azithromycin. Agree with dose at 500 mg IV on day one, now 500 mg PO daily so long as tolerating oral meds without vomiting; duration 10 days. atovaquone dose will be 750 mg po bid for at least 10 days, may extend the course if
parasitemia doesnt clear
- recommend calling in the scripts for these now as many pharmacies will need to special order the atovaquone
- 09/05/23 lyme serologies reflect previous known infection. To confirm acute lyme disease now, would need repeat serologies in two weeks showing >4x increase in the titers. Will treat preemptively in the meantime - plan doxycycline 100 mg PO BID
x2 weeks
- of academic interest Babesia divergens is more common in [place] however it is a very unusual infection, patient without exposure to rural areas while in [place] and is very clear that his symptoms began before travel. Additionally B divergens is
typically associated with very high parasitemia. Our patient has a more typical presentations of B microti which is commonly seen in this region.
- tells me he has forsaken veganism and trail building
- tick avoidance reviewed with patient
- Recalls having PCV20 vaccine but not HIB or Meningococcal vaccines - can get those with me in follow up
- would follow patient overnight. follow up with me in 1 week; repeat babesia smear the day before; if persistent parasitemia then I will extend course of azithromycin/atovaquone
Care Review
Plan reviewed with: Physician (Dr Gomez and Dr Peñaloza - management, prevention)
[2023-09-07] MEDS: FOLVITE 1 MG PO (10:58)
--- NOTE | 2023-09-07 11:10 | PN.CDI ---
CDI
- -
CDI:
Physician Documentation Request
Admit Date: 09/05/23 18:34
Dear Doctor Patricia,
Please review the following and provide your response in the progress notes.
Clinical Indicators:
- 09/05 PN 'Low albumin--Likely malnutrition from Vegan diet'
- 09/05 Barrel Lathe Operator note indicates inadequate energy intake with reported weight loss
Based on the above information and your assessment, which of the following most accurately represents the patient's nutritional status?
Malnutrition (specify if mild, moderate or severe)
Cachexia without malnutrition
No nutritional deficiency
Other (please specify)
[place] Criteria ([facility] Hospitalist 2017)
2 or more criteria must be present for either
non severe or severe malnutrition
Note that the criteria differs related to the
presence of an acute or chronic illness
Acute Illness Chronic Illness
Energy Intake Non Severe: <75% for >7 days Non Severe: <75% for >1 month
Severe: <50% for >5 days Severe: <75% for >1 month
Weight Loss Non Severe: 1-2% over 1 week Non Severe: 5% over 1 month
5% over 1 month 7.5% over 3 months
7.5% over 3 months 10% over 6 months
1 year N/A 20% over 1 year
Severe: >2% over 1 week Severe: >5% over 1 month
>5% over 1 month >7.5% over 3 months
>7.5% over 3 months >10% over 6 months
1 year N/A >20% over 1 year
Body Fat Non Severe: Mild Decrease Non Severe: Mild Loss
Severe: Moderate Decrease Severe: Severe Loss
Muscle Mass Non Severe: Mild Decrease Non Severe: Mild Loss
Severe: Moderate Decrease Severe: Severe Loss
Fluid Accumulation Non Severe: Mild Accumulation Non Severe: Mild Accumulation
Severe: Moderate to severe Severe: Moderate to severe
accumulation accumulation
Reduced Global Regulatory Lead Strength Non Severe: N/A Non Severe: N/A
Severe: Measurably reduced Severe: Measurably reduced
Additional criteria that can be used to Determine if Mild or Moderate Malnutrition (Merck Manual 2018)
Mild Moderate Severe
Albumin gm/dl <3.0 gm/dl <2.5 gm/dl <2.0 gm/dl
Pre Albumin mg/dl <15 gm/dl <10 mg/dl <5.0 mg/dl
BMI <18.5 <17 <16
Use of terms such as suspected, likely, concern for, or probable (associated with a specific diagnosis that is being evaluated, monitored, or treated as if it exists) are acceptable and can be coded in the inpatient setting, when documented at the
time of discharge.
Thank you,
Darwin Tipton RN
CDI Specialist
Please use your independent medical judgment in providing your response.
[2023-09-07 14:37] LABS: Haptoglobin <10 mg/dL (30-200)
[2023-09-07 17:41] LABS: Endomysial IgA Antibody Titer <1:10 (<1:10)
[2023-09-07] MEDS: ZITHROMAX 500 MG PO (19:13)
[2023-09-07] MEDS: TYLENOL 500 MG PO (23:56)
--- NOTE | 2023-09-08 03:49 | DOWNTIME ---
There was a [email or web address] Downtime on 09/08/2023 from 0100 to 09/08/2023 at 0337. Downtime documentation of patient's care, including medication administrations, has been reconciled in the electronic record per guidelines. Refer to the
patient's paper chart under the miscellaneous tab to see printed paper medication records and downtime forms.
--- NOTE | 2023-09-08 06:32 | W.PN.HOSP.TC ---
Today's Communication/Plan
-
Lyme serology, presumptively positive
Endomysial IgA, TTG IgG and IgA pending.
Monitor H&H and follow LDH.
Serial parasite load
Follow fever curve
Continue antibiotics
Assessment / Plan
Assessment / Plan
ASSESSMENT: 67-year-old male with past medical history of ITP (1982), s/p splenectomy, admitted 09/05/2023 with symptomatic anemia (Hb 7.2) and dark urine for 2 weeks. Reports intermittent fever and chills that responds to Tylenol for the past few
days. Recent travel to [place], [place] and [place]. Patient reports working in the [email or web address] prior to having symptoms.
Impression/Plan:
Symptomatic anemia
-Dark urine on presentation (resolved), with elevated T. bili, intermittent fever and chills.
-Peripheral blood smear positive for Babesia.
-Hb continues to improve, 8.9 (8.4 yesterday),
-S/p transfusion of 2 units PRBC 09/06/2023.
-LDH 475, reticulocyte count 11.1, haptoglobin pending. Anemia strongly suggestive of hemolysis from parasitic infection vs vitamin B12 deficiency. Acute blood loss less likely.
-Baseline ECG unremarkable, no QTc prolongation at baseline.
-ECG 09/08/2023 sinus bradycardia. Patient asymptomatic. Continue to monitor.
-Platelet count trending down, 145 today
-Follow CBC and monitor H&H, transfuse if hemoglobin is less than 7.
-Folate added for hemolytic anemia.
-Hematology following, recs appreciated.
-Continue IV fluid.
Infection with Babesia
-Peripheral blood smear showed 0.3% parasitemia on arrival, repeats parasite load 1%.
-Most likely contributed to severe anemia, although this does not explain hemoglobin of 3.0, there may be other hemolytic processes going on.
-Lyme serology presumptively positive, notes rare inclusion bodies, marked reticulocytes and mild degree of target cells.
-Positive IgA, may represent autoimmune process.
-Endomysial IgA, TTG IgG and IgA pending.
-Monitor H&H and follow LDH.
-ID following, recs appreciated.
-Continue antibiotics, azithromycin/atovaquone day 3 of 10, doxycycline day 3 of 14 ( for co-infection infection prophylaxis).
-Serial blood parasite load.
Vitamin B12 deficiency
-Continue vitamin B12 supplementation.
Hyponatremia
-Improved with IV fluid. Chemistry pending
-Likely hypovolemic hyponatremia.
-Continue IV normal saline.
-Follow BMP.
Low-grade fever
-Intermittent fever as high as 101.3
-Tylenol as needed.
Low albumin
-Likely malnutrition vs cancer.
-Follow BMP
Anticipated Discharge: 24 - 48 hours
Subjective/Interval History
-
Date of Service: September 08, 2023
Percent peripheral blood smear was positive for Babesia. Patient started on antibiotics. Patient reports feeling better after 2 units of PRBC transfusion.
Objective Data
-
Labs:
Laboratory Results
09/07/23
08:27
WBC 6.5
Hgb 8.4 L D
Hct 23.6 L
Plt Count 145
Sodium 128 L
Potassium 4.5
Chloride 101
Carbon Dioxide 22
BUN 12
Creatinine 0.8
Glucose 112 H
Calcium 8.2 L
Vital Signs:
Vital Signs
Temp Pulse Resp BP Pulse Ox
99.2 F 71 16 115/59 93
09/07/23 07:05 09/07/23 15:00 09/07/23 15:00 09/07/23 15:00 09/07/23 15:00
I&O
09/06/23 09/07/23 09/08/23
06:59 06:59 06:59
Intake Total 1000 / 1000 2410 / 2410
Balance 1000 / 1000 2410 / 2410
Review of Systems
-
History Source: Patient
All other systems: Not reviewed unless documented
Constitutional: Reports Fever (Intermittent ) and Fatigue
EENT: Reports No Symptoms Reported
Respiratory: Reports No Symptoms; Denies Cough, Hemoptysis or Wheezing
Cardiac: Reports No Symptoms; Denies Chest Pain or Palpitations
Abdomen/GI: Reports No Symptoms; Denies Abdominal Pain, Nausea or Vomiting
Genitourinary: Reports No Symptoms
Skin: Reports No Symptoms
Endocrine: Reports No Symptoms
Physical Exam
-
General: No Apparent Distress and Comfortable; Negative Well Nourished or Pain
HEENT: Atraumatic and Moist Mucous Membranes
Respiratory: Clear to Auscultation; Negative Wheezes, Rales or Crackles
Cardiac: Regular Rhythm and S1/S2; Negative Murmur or Rub
GI: Soft, Nontender, Nondistended and Normal Bowel Sounds
Musculoskeletal: No Cyanosis and No Edema; Negative Clubbing
Skin: Warm
Neuro: Awake, Alert and AO x 3
Psych: Calm and Intact Judgement/Insight
Data Reviewed
-
Diagnostic Radiology: Report Reviewed by me and Discussed with Physician
Labs: Labs Reviewed by me and Discussed with Physician
Old Records: Reviewed
[2023-09-08 08:15] LABS: % Basophils 0.5 % (0-2); % Eosinophils 0.5 % (0-6); % Immature Granulocytes 1.3 % (0-0.5); % Lymphocytes 32.6 % (20.5-51.1); % Monocytes 17.2 % (1.7-9.3); % Neutrophils 47.9 % (42.2-75.2); Absolute Basophils 0.1 10^3/uL (0-0.2); Absolute Eosinophils 0.1 10^3/uL (0-0.7); Absolute Immature Granulocytes 0.1 10^3/uL (0-0.05); Absolute Lymphocytes 3.3 10^3/uL (1.2-3.4); Absolute Monocytes 1.7 10^3/uL (0.1-0.6); Absolute Neutrophils 4.8 10^3/uL (1.4-6.5); Hematocrit 25.7 % (39.0-52.0); Hemoglobin 8.9 g/dL (13.0-18.0); Mean Corp Hgb Conc. 34.6 g/dL (33.0-37.0); Mean Corpuscular Hgb 30.6 pg (27.0-31.0); Mean Corpuscular Volume 88.3 fL (80.0-94.0); Mean Platelet Volume 12.1 fL (7.4-10.4); Nucleated Red Blood Cells % 0.3 % (-); Platelet Count 148 10^3/uL (130-400); Red Blood Cell Count 2.91 10^6/uL (4.70-6.10); Red Cell Dist. Width 20.5 % (11.5-14.5)
--- NOTE | 2023-09-08 08:33 | W.PN.ONC2 ---
Today's Communication / Plan
-
Monitor CBC. Transfuse PRN HgB < 7.
HgB 8.9 today.
Continue B12 and folate repletion
Impression
Impression
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
B12 deficiency
Plan
Plan
Babesiosis confirmed on thin smears.
Receiving folic acid (for hemolytic anemia) and B12 (for B12 def)
Hemolysis should improve on appropriate antibiotic therapy.
On atovaquone, doxycycline, and azithromycin for co-infection infection prophylaxis.
Subjective/Objective
Chief Complaint
ACS Heme F/U
Subjective
+ Chills and fevers.
Vital Signs:
Vital Signs
Temp Pulse Resp BP Pulse Ox
98.6 F 71 16 119/57 96
09/08/23 06:15 09/07/23 23:04 09/07/23 23:04 09/07/23 23:04 09/07/23 23:04
Lab Results:
Laboratory Data
WBC 10.0 10^3/uL (4.8-10.8) 09/08/23 07:45
Hgb 8.9 g/dL (13.0-18.0) L 09/08/23 07:45
Plt Count 148 10^3/uL (130-400) 09/08/23 07:45
eGFR > 60.00 09/07/23 08:27
Physical Exam
NonToxic
Cardiology: S1 and S2
Pulmonary: Clear
GI: Soft
Extremities: No C/C/E
[2023-09-08 08:45] VITALS: BP 137/67
[2023-09-08] MEDS: CYANOCOBALAMIN 1000 MCG IM (09:17)
[2023-09-08] MEDS: TYLENOL 500 MG PO (09:17)
[2023-09-08] MEDS: MEPRON SUSPENSION 750 MG PO (09:17)
[2023-09-08] MEDS: REFRESH EYE DROPS (PF) 1 DROPS BOTH EYES (09:18)
[2023-09-08] MEDS: PROTONIX 40 MG PO (09:18)
[2023-09-08] MEDS: FOLVITE 1 MG PO (09:18)
[2023-09-08] MEDS: VIBRAMYCIN 100 MG PO (09:19)
[2023-09-08 09:43] LABS: Blood Urea Nitrogen 14 mg/dl (9-20); Calcium 8.5 mg/dl (8.4-10.2); Carbon Dioxide 21 mmol/L (22-30); Chloride 96 mmol/L (98-107); Estimated Creatinine Clearance 81 ml/min; Glucose 94 mg/dl (70-99); LDH 588 U/L (120-246); Potassium 4.1 mmol/L (3.5-5.1); Sodium 126 mmol/L (135-145); eGFR > 60.00
--- NOTE | 2023-09-08 12:56 | W.PN.HOSP.TC ---
Addendum entered and electronically signed by Solange Gomez MD 09/08/23 18:48:
error--already documented
Addendum entered and electronically signed by Solange Gomez MD 09/08/23 17:12:
Patient seen and examined independently--agree with plan set forth by Dr. Peñaloza
GENERAL: well developed, well nourished, male in no apparent distress
HEENT: NC/AT
HEART: regular rate and rhythm, +S1, +S2--no murmurs
LUNGS : clear to auscultation bilaterally
ABDOM: soft, nontender, nondistended, + bowel sounds
EXT: no cyanosis, clubbing, or edema
NEUROLOGIC: grossly intact
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
to his vegan diet--cont repletion--Positive IgA, this may represent autoimmune process although unclear-- Endomysial IgA, TTG IgG and IgA are pending--apprec heme/ID --fevers likely to cont for some time
Babesiosis--likely cause of fevers--apprec ID--cont atovaquone, doxy, zithromax--follow parasite load/smears--lyme also presumptively positive, await definitive results
Hyponatremia--likely due to poor PO intake--stop IVF---Likely hypovolemic hyponatremia--fluid restriction
Low albumin--Likely moderate malnutrition from Vegan diet --albumin 2.2
code status -- FULL CODE
OK for d/c
Original Note:
Today's Communication/Plan
-
Lyme serology, presumptively positive
Endomysial IgA, TTG IgG and IgA pending.
Monitor H&H and follow LDH.
Serial parasite load
Follow fever curve
Continue antibiotics
Assessment / Plan
Assessment / Plan
ASSESSMENT: 67-year-old male with past medical history of ITP (1982), s/p splenectomy, admitted 09/05/2023 with symptomatic anemia (Hb 7.2) and dark urine for 2 weeks. Reports intermittent fever and chills that responds to Tylenol for the past few
days. Recent travel to [place], [place] and [place]. Patient reports working in the [employer] prior to having symptoms.
Impression/Plan:
Symptomatic anemia
-Dark urine on presentation (resolved), with elevated T. bili, intermittent fever and chills.
-Peripheral blood smear positive for Babesia.
-Hb continues to improve, 8.9 (8.4 yesterday).
-S/p transfusion of 2 units PRBC 09/06/2023.
-Serum LDH trending up to 588 (457 yesterday), reticulocyte count 11.1, haptoglobin<10.
-Anemia strongly suggestive of hemolysis from parasitic infection vs vitamin B12 deficiency. Acute blood loss less likely.
-Baseline ECG unremarkable, no QTc prolongation at baseline.
-ECG 09/08/2023 sinus bradycardia. Patient asymptomatic. Continue to monitor.
-Platelet count decreased to 145 yesterday, 148 today.
-Follow CBC and monitor H&H outpatient, transfuse if hemoglobin is less than 7.
-Folate added for hemolytic anemia.
-Hematology following, recs appreciated.
Infection with Babesia
-Peripheral blood smear showed 0.3% parasitemia on presentation, repeats parasite load 1% yesterday and 0.6% today.
-Blood parasite load outpatient prior to ID specialist visit.
-Most likely contributed to severe anemia, although this does not explain hemoglobin of 3.0, there may be other hemolytic processes going on.
-Lyme serology presumptively positive, notes rare inclusion bodies, and mild degree of target cells.
-Positive IgA, may represent autoimmune process.
-IgA antibody titer negative, endomysial IgA, TTG IgG pending.
-Monitor H&H and follow LDH.
-ID following, recs appreciated.
-Continue antibiotics, azithromycin/atovaquone day 3 of 10, doxycycline day 3 of 14 ( for co-infection infection prophylaxis), continue outpatient.
-Serial blood parasite load.
Vitamin B12 deficiency
-Continue vitamin B12 supplementation.
Hyponatremia
-Minimally improved with IV fluid but worsened today.
-Fluid restriction
-Follow BMP outpatient.
Low-grade fever
-Intermittent fever as high as 101.3
-Tylenol as needed.
Low albumin
-Likely malnutrition vs cancer.
-Follow with CMP outpatient
Anticipated Discharge: Today
Subjective/Interval History
-
Date of Service: September 08, 2023
Objective Data
-
Labs:
Laboratory Results
09/08/23
07:45
WBC 10.0
Hgb 8.9 L
Hct 25.7 L
Plt Count 148
Sodium 126 L
Potassium 4.1
Chloride 96 L
Carbon Dioxide 21 L
BUN 14
Creatinine 0.8
Glucose 94
Calcium 8.5
Vital Signs:
Vital Signs
Temp Pulse Resp BP Pulse Ox
102.1 F H 85 20 137/67 95
09/08/23 11:00 09/08/23 08:45 09/08/23 08:45 09/08/23 08:45 09/08/23 08:45
I&O
09/07/23 09/08/23 09/09/23
06:59 06:59 06:59
Intake Total 2409 / 2409 880 /
Balance 2409
Review of Systems
-
History Source: Patient
All other systems: Not reviewed unless documented
Constitutional: Reports Fever (Intermittent ), Fatigue, Night Sweats and Chills; Denies Weakness
EENT: Reports No Symptoms Reported
Respiratory: Reports No Symptoms; Denies Cough, Hemoptysis or Wheezing
Cardiac: Reports No Symptoms; Denies Chest Pain or Palpitations
Abdomen/GI: Reports No Symptoms; Denies Abdominal Pain, Nausea or Vomiting
Genitourinary: Reports No Symptoms
Skin: Reports No Symptoms
Neuro: Reports No Symptoms
Endocrine: Reports No Symptoms
Allergy / Immunology: Reports No Symptoms
Physical Exam
-
General: No Apparent Distress, Comfortable, Fever (intermittent), Chills (intermittent) and Sweats (intermittent); Negative Well Nourished or Pain
HEENT: Atraumatic and Moist Mucous Membranes
Respiratory: Clear to Auscultation; Negative Wheezes, Rales or Crackles
Cardiac: Regular Rhythm and S1/S2; Negative Murmur or Rub
GI: Soft, Nontender, Nondistended and Normal Bowel Sounds
Musculoskeletal: No Cyanosis and No Edema; Negative Clubbing
Skin: Warm
Neuro: Awake, Alert, Oriented, AO x 3 and No Motor Deficits
Psych: Calm and Intact Judgement/Insight
Data Reviewed
-
Diagnostic Radiology: Report Reviewed by me and Discussed with Physician
Labs: Labs Reviewed by me and Discussed with Physician
Old Records: Reviewed
--- NOTE | 2023-09-08 13:13 | W.PN.ID1 ---
Date of Service
Date of Service: September 08, 2023
Today's Communication
- continue azithromycin 500 mg PO daily, atovaquone 750 mg po BID duration 10 days may extend the course if parasitemia doesnt clear
doxycycline 100 mg PO BID x2 weeks
Assessment / Plan
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
Remote history of lyme disease
Hemolytic anemia
- h/o splenectomy 1983 for ITP
- babesia smear improved to 0.6%
- Note improvement in symptoms and fever curve which is reassuring.
- continue to repeat smears/cbc next early next week
- continue azithromycin 500 mg PO daily, atovaquone 750 mg po BID duration 10 days may extend the course if parasitemia doesnt clear
- 09/05/23 lyme serologies reflect previous known infection. To confirm acute lyme disease now, would need repeat serologies in two weeks showing >4x increase in the titers. Will treat preemptively in the meantime - plan doxycycline 100 mg PO BID
x2 weeks
- follow up with me in 1 week; repeat babesia smear the day before; if persistent parasitemia then I will extend course of azithromycin/atovaquone
Chief Complaint
-: Other (Babesiosis)
Subjective / Review of Systems
fevers ongoing however tamir is getting lower
bp stable
hgb further improved and patient with brisk reticulocytosis
cr stable
LDH remains elevated
babesia smear today 0.6%
discussed with
Vital Signs / Physical Exam
Vital Signs
Vital Signs
Temp Pulse Resp BP Pulse Ox
102.1 F H 85 20 137/67 95
09/08/23 11:00 09/08/23 08:45 09/08/23 08:45 09/08/23 08:45 09/08/23 08:45
Physical Exam
Constitutional: No Acute Distress
Cardiovascular: Regular Rate and S1/S2; Negative Murmur or Rub
Pulmonary: Clear and Symmetric; Negative Wheezes or Rales
Gastrointestinal: Soft, Non Tender, Non Distended and Normal Bowel Sounds
Skin: Warm and Dry; Negative Rash or Jaundice
Objective Data
Lab Data
Lab Results
09/08/23 07:45
09/08/23 07:45
Estimated Creat Clear 81 ml/min 09/08/23 07:45
Lactic Acid 0.9 mmol/L (0.7-2.0) 09/05/23 20:11
Total Bilirubin 2.6 mg/dl (0.2-1.3) H 09/06/23 07:42
AST 48 U/L (17-59) 09/06/23 07:42
ALT 26 U/L (0-50) 09/06/23 07:42
Alkaline Phosphatase 52 U/L (38-126) 09/06/23 07:42
Most recent labs reviewed.
Micro Results:
09/08/23 07:45 Blood Parasites Smear - Final
Blood/Venous Babesia species
09/05/23 16:12 Blood Culture - Preliminary
Blood/Venous No Growth in 48 hours- Final report to follow
09/05/23 16:12 Blood Culture - Preliminary
Blood/Venous No Growth in 48 hours- Final report to follow
09/07/23 08:27 Blood Parasites Smear - Final
Blood/Venous Babesia species
09/06/23 15:23 Blood Parasites Smear - Final
Blood/Venous Babesia species
--- NOTE | 2023-09-08 13:36 | W.DCSUMMARY ---
Addendum entered and electronically signed by Solange Gomez MD 09/08/23 20:18:
Read fully and agree with discharge summary as set forth by Dr. Peñaloza.
Nothing further to add.
Time for discharge 37 minutes.
Original Note:
Discharge Summary
Discharge Data
Date of Admission: 09/05/23
Date of Discharge: 09/08/23
-
Pending Results: No
Hospital Course
Discharging Physician : Dr. Solange Gomez MD, Dr. Gerry Peñaloza MD
Disposition : Home
Primary care physician : Dr. Edis Urrutia MD
Principal Discharge diagnosis : Babesiosis, acute hemolytic anemia, hyponatremia, hypoalbuminemia, Lyme disease.
Chronic Discharge diagnosis : ITP
Hospital Course : Patient is a 67-year-old male with past medical history of ITP, s/p splenectomy (1982), Lyme disease, who was admitted on 09/04/2021 for symptomatic anemia with Hb 7.2 (not 3.0 as mentioned in my previous notes) and dark urine for 2
weeks. Patient reports that he was having intermittent fevers and chills to travel to [place], [place] and [place]. Reported several weeks of malaise, nausea and vomiting with night sweats prior to travel to [facility]. Patient did not spend time in
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 He did not witness or see any tick bite or rash. Prior to his return from [facility], patient
stated that he fainted due to dehydration and time standing was seen briefly in the urgent care but did not go to the ER. Upon return, he noted progressive worsening of dark urine chills, fever and anorexia. He had an outpatient COVID testing
which came back negative. He spiked fever spike percent to 102.8 which prompted his return to the ED.
On presentation, his hemoglobin was initially 7.1 (reports baseline 12.01-year ago), WBC 4.7, RDW 22, platelets 173, sodium 124, ferritin 1460, TIBC 245, iron 46, lactic acid 1.4, LDH 351, albumin 2.8. Chest x-ray showed no acute cardiopulmonary
process. Patient was admitted for further evaluation and management.
After 1 day in the hospital, patient continued to have fever spikes controlled on Tylenol, and peripheral blood smear was positive for babesiosis with initial parasite load of 0.3%. Hemoglobin acutely dropped to 6.2 requiring 2 units of PRBC
transfusion. His platelets also dropped to 154 sodium improved to 127. Patient was treated with atovaquone, azithromycin and doxycycline. Patient was seen in consultation with infectious disease and oncology.
During the course of his stay in the hospital, his haptoglobin level reported less than 10, with reticulocyte count of 11.1 and LDH max 588. His parasite load increased to 1% and then decreased to 0.6%. His labs also showed positive IgM and IgG
serology for Lyme disease. Patient was also found to have vitamin B12 deficiency and was treated with vitamin B12 and folate supplements.
Patient hemoglobin continues to improve was currently 8.9 at the time of discharge. Patient was also given scripts for CBC, BMP, parasite load, and peripheral blood smear to be done at least 2 days before his visit. Patient was assessed and
stable for discharge. Patient was asked to return to the hospital if fever worsening or not improving. Patient should also follow-up with hematology if vitamin B12 level is not improved in 2 to 3 weeks. Patient was discharged with antibiotics to
complete a 10 days of atovaquone 750 mg p.o. twice daily, 10 days of azithromycin 500 p.o. daily and 2 weeks of doxycycline 100 mg p.o. twice daily. He was instructed to follow-up with his primary care, and infectious disease in less than 1 week.
Discharge Plan
-
Patient Disposition: Home (Routine Discharge)
Discharge Diagnosis/Procedures: Symptomatic hemolytic anemia, babesiosis, vitamin B12 deficiency, hyponatremia, hypoalbuminemia
Diet: Regular and Restrict fluids to 48 oz
Additional Diets: Fluid restriction to 50 ounces per day until sodium level improves
Activity: No restrictions
Driving Restrictions: As prior to admission
Bathing Restrictions: None
Referrals:
Edis Urrutia MD [Family Provider] - in less than 1 week (Blood work at least 2 days before visit)
Maryuri Lemons MD [Active] - in less than 1 week (Get lab work done at least 2 days before visit)
Prescriptions:
New
cyanocobalamin (vitamin B-12) 1,000 mcg tablet
1,000 mcg PO DAILY Qty: 30 0RF
folic acid 1 mg tablet
1 mg PO DAILY Qty: 30 0RF
atovaquone 750 mg/5 mL Suspension
750 mg PO Q12 Qty: 35 0RF
Rx Instructions:
Take with food
pantoprazole 40 mg Tablet,Delayed Release (Dr/Ec)
40 mg PO BID Qty: 60 0RF
doxycycline hyclate 100 mg Capsule
100 mg PO Q12 Qty: 22 0RF
azithromycin 250 mg Tablet
500 mg PO DAILY@2000 Qty: 7 0RF
Continued
aspirin 81 mg Tablet,Delayed Release (Dr/Ec)
81 mg PO DAILY
acetaminophen [Tylenol Extra Strength] 500 mg Tablet
500 mg PO BIDPRN PRN (Reason: mild pain/fever)
telmisartan 20 mg tablet
20 mg PO HS
coenzyme Q10 [CoQ-10] 100 mg Capsule
100 mg PO DAILY
rosuvastatin 10 mg tablet
10 mg PO DAILY
Biotrue Eye Drops (Pf)
1 drp BOTH EYES DAILY
Patient Comments:
09/05/2023, preservative free.
Discharge Orders:
Discharge Patient (As Directed); Ordered 09/08/23
Ordered By: Gerry Peñaloza
Discharge Date and Time
Discharge Date/Time: 09/08/23 16:30
Print Language: KYRGYZ
--- NOTE | 2023-09-08 14:25 | CM ---
Patient seen at bedside, with physician and resident. Patient to transport home, no VN needs. Patient completed IMM 09/07/23, placed on chart. Patient with no needs at this time. CM will continue to follow for discharge planning needs.
Plan; home with no needs.
[2023-09-08 15:48] LABS: tTG IgA Antibody 22.1 EU/ml (0-19); tTG IgG Antibody 19.8 EU/ml (0-19)
[2023-09-08 16:00] VITALS: BP 116/69
[2023-09-08 17:06] LABS: Lyme Ab Western Blot IgG Positive (Negative); Lyme Ab Western Blot IgM Positive (Negative)
== END 2023-09-08 16:30 | disposition home or self-care (01) | DRG 809 ==
LOC: 4 WEST ACU 18:34
PROVIDERS: Student in an Organized Health Care Education/Training Program; ADMITTING PHYSICIAN Internal Medicine; ATTENDING PHYSICIAN Internal Medicine; EMERGENCY PHYSICIAN Emergency Medicine; FAMILY PHYSICIAN Internal Medicine; OTHER PHYSICIAN Internal Medicine Hematology & Oncology; OTHER PHYSICIAN Student in an Organized Health Care Education/Training Program
PROC: 30233N1 Transfusion of Nonautologous Red Blood Cells into Peripheral Vein, Percutaneous Approach (ICD-10-PCS; 2023-09-06)
DX: D59.4 Other nonautoimmune hemolytic anemias (principal); A69.20 Lyme disease, unspecified; B60.00 Babesiosis, unspecified; E87.1 Hypo-osmolality and hyponatremia; D84.81 Immunodeficiency due to conditions classified elsewhere; E44.0 Moderate protein-calorie malnutrition; I10 Essential (primary) hypertension; Z68.23 Body mass index [BMI] 23.0-23.9, adult; E80.7 Disorder of bilirubin metabolism, unspecified; E53.8 Deficiency of other specified B group vitamins; E78.00 Pure hypercholesterolemia, unspecified; Z79.82 Long term (current) use of aspirin; Z79.899 Other long term (current) drug therapy; Z90.81 Acquired absence of spleen; Z86.2 Personal history of diseases of the blood and blood-forming organs and certain disorders involving the immune mechanism
CPT/HCPCS: 71046; 80048; 80053; 81003; 81015; 82607; 82728; 82746; 82784; 83010; 83516; 83540; 83550; 83605; 83615; 83930; 83935; 84300; 85014; 85018; 85025; 85045; 86231; 86617; 86618; 86850; 86870; 86900; 86901; 86902; 86920; 86922; 87015; 87040; 87207; 93005; 96360; 99285; P9016

== ENCOUNTER → 2023-09-10 14:57 | Outpatient (REF) | payer MEDICARE, OTHER, SELFPAY ==
[2023-09-10 17:37] LABS: % Basophils 0.4 % (0-2); % Eosinophils 1.3 % (0-6); % Immature Granulocytes 2.2 % (0-0.5); % Lymphocytes 30.5 % (20.5-51.1); % Monocytes 14.5 % (1.7-9.3); % Neutrophils 51.1 % (42.2-75.2); Absolute Eosinophils 0.1 10^3/uL (0-0.7); Absolute Immature Granulocytes 0.2 10^3/uL (0-0.05); Absolute Lymphocytes 2.3 10^3/uL (1.2-3.4); Absolute Monocytes 1.1 10^3/uL (0.1-0.6); Absolute Neutrophils 3.9 10^3/uL (1.4-6.5); Hematocrit 23.4 % (39.0-52.0); Hemoglobin 7.8 g/dL (13.0-18.0); Mean Corp Hgb Conc. 33.3 g/dL (33.0-37.0); Mean Corpuscular Hgb 31.6 pg (27.0-31.0); Mean Corpuscular Volume 94.7 fL (80.0-94.0); Mean Platelet Volume 12.2 fL (7.4-10.4); Nucleated Red Blood Cells % 1.6 % (-); Platelet Count 216 10^3/uL (130-400); Red Blood Cell Count 2.47 10^6/uL (4.70-6.10); Red Cell Dist. Width 22.8 % (11.5-14.5); White Blood Cell Count 7.7 10^3/uL (4.8-10.8)
[2023-09-10 17:46] LABS: Blood Urea Nitrogen 15 mg/dl (9-20); Calcium 8.3 mg/dl (8.4-10.2); Carbon Dioxide 24 mmol/L (22-30); Chloride 103 mmol/L (98-107); Glucose 120 mg/dl (70-99); LDH 774 U/L (120-246); Potassium 4.5 mmol/L (3.5-5.1); Sodium 132 mmol/L (135-145); eGFR > 60.00
[2023-09-10 19:11] LABS: Anisocytosis 1+; Hypochromasia 1+; Normal RBC Morphology Yes; Polychromasia Slight; Target Cells 1+
== END ==
LOC: REG 14:57
PROVIDERS: ATTENDING PHYSICIAN Student in an Organized Health Care Education/Training Program; FAMILY PHYSICIAN Internal Medicine; OTHER PHYSICIAN Student in an Organized Health Care Education/Training Program
DX: D59.19 Other autoimmune hemolytic anemia (principal); E87.1 Hypo-osmolality and hyponatremia; B60.00 Babesiosis, unspecified
CPT/HCPCS: 36415; 80048; 83615; 85025; 87015; 87207

== ENCOUNTER → 2023-09-13 12:29 | Outpatient (REF) | payer MEDICARE, OTHER, SELFPAY ==
[2023-09-13 13:04] LABS: % Basophils 0.6 % (0-2); % Eosinophils 0.6 % (0-6); % Immature Granulocytes 2.9 % (0-0.5); % Lymphocytes 34.9 % (20.5-51.1); % Monocytes 15.9 % (1.7-9.3); % Neutrophils 45.1 % (42.2-75.2); Absolute Basophils 0.1 10^3/uL (0-0.2); Absolute Eosinophils 0.1 10^3/uL (0-0.7); Absolute Immature Granulocytes 0.2 10^3/uL (0-0.05); Absolute Lymphocytes 2.8 10^3/uL (1.2-3.4); Absolute Monocytes 1.3 10^3/uL (0.1-0.6); Absolute Neutrophils 3.6 10^3/uL (1.4-6.5); Hematocrit 25.6 % (39.0-52.0); Hemoglobin 8.4 g/dL (13.0-18.0); Mean Corp Hgb Conc. 32.8 g/dL (33.0-37.0); Mean Corpuscular Hgb 32.1 pg (27.0-31.0); Mean Corpuscular Volume 97.7 fL (80.0-94.0); Mean Platelet Volume 11.3 fL (7.4-10.4); Nucleated Red Blood Cells % 1.8 % (-); Platelet Count 240 10^3/uL (130-400); Red Blood Cell Count 2.62 10^6/uL (4.70-6.10); Red Cell Dist. Width 24.8 % (11.5-14.5)
[2023-09-13 13:36] LABS: Blood Urea Nitrogen 15 mg/dl (9-20); Calcium 9.4 mg/dl (8.4-10.2); Carbon Dioxide 25 mmol/L (22-30); Chloride 100 mmol/L (98-107); Glucose 101 mg/dl (70-99); Potassium 5.1 mmol/L (3.5-5.1); Sodium 131 mmol/L (135-145); eGFR > 60.00
== END ==
LOC: REG 12:29
PROVIDERS: ATTENDING PHYSICIAN Student in an Organized Health Care Education/Training Program; FAMILY PHYSICIAN Internal Medicine
DX: B60.00 Babesiosis, unspecified (principal)
CPT/HCPCS: 36415; 80048; 85025

== ENCOUNTER → 2023-09-20 14:03 | Outpatient (REF) | payer MEDICARE, OTHER, SELFPAY ==
[2023-09-20 14:24] LABS: % Basophils 1.3 % (0-2); % Eosinophils 1.3 % (0-6); % Immature Granulocytes 0.4 % (0-0.5); % Lymphocytes 46.6 % (20.5-51.1); % Neutrophils 33.4 % (42.2-75.2); Absolute Basophils 0.1 10^3/uL (0-0.2); Absolute Eosinophils 0.1 10^3/uL (0-0.7); Absolute Lymphocytes 2.5 10^3/uL (1.2-3.4); Absolute Monocytes 0.9 10^3/uL (0.1-0.6); Absolute Neutrophils 1.8 10^3/uL (1.4-6.5); Hematocrit 32.4 % (39.0-52.0); Hemoglobin 10.5 g/dL (13.0-18.0); Mean Corp Hgb Conc. 32.4 g/dL (33.0-37.0); Mean Corpuscular Hgb 33.5 pg (27.0-31.0); Mean Corpuscular Volume 103.5 fL (80.0-94.0); Mean Platelet Volume 10.3 fL (7.4-10.4); Nucleated Red Blood Cells % 0 % (-); Platelet Count 286 10^3/uL (130-400); Red Blood Cell Count 3.13 10^6/uL (4.70-6.10); Red Cell Dist. Width 21.6 % (11.5-14.5); Reticulocyte Count 9.2 % (0.4-2.8); White Blood Cell Count 5.3 10^3/uL (4.8-10.8)
[2023-09-20 14:49] LABS: ALT (SGPT) 86 U/L (0-50); AST (SGOT) 91 U/L (17-59); Albumin 3.8 g/dl (3.5-5.0); Alkaline Phosphatase 86 U/L (38-126); Blood Urea Nitrogen 18 mg/dl (9-20); Calcium 9.8 mg/dl (8.4-10.2); Carbon Dioxide 26 mmol/L (22-30); Chloride 99 mmol/L (98-107); Glucose 99 mg/dl (70-99); Potassium 4.7 mmol/L (3.5-5.1); Sodium 131 mmol/L (135-145); Total Bilirubin 1.3 mg/dl (0.2-1.3); Total Protein 7.8 g/dl (6.3-8.2); eGFR > 60.00
== END ==
LOC: REG 14:03
PROVIDERS: ATTENDING PHYSICIAN Internal Medicine; FAMILY PHYSICIAN Student in an Organized Health Care Education/Training Program
DX: B60.00 Babesiosis, unspecified (principal); D59.4 Other nonautoimmune hemolytic anemias; A69.20 Lyme disease, unspecified; E87.1 Hypo-osmolality and hyponatremia; I10 Essential (primary) hypertension; Z90.81 Acquired absence of spleen
CPT/HCPCS: 36415; 80053; 85025; 85045

== ENCOUNTER → 2023-09-27 15:15 | Outpatient (REF) | payer MEDICARE, OTHER, SELFPAY ==
[2023-09-27 16:20] LABS: Hematocrit 30.8 % (39.0-52.0); Hemoglobin 10.2 g/dL (13.0-18.0); Mean Corp Hgb Conc. 33.1 g/dL (33.0-37.0); Mean Corpuscular Hgb 33.9 pg (27.0-31.0); Mean Corpuscular Volume 102.3 fL (80.0-94.0); Mean Platelet Volume 10.4 fL (7.4-10.4); Platelet Count 200 10^3/uL (130-400); Red Blood Cell Count 3.01 10^6/uL (4.70-6.10); Red Cell Dist. Width 18.6 % (11.5-14.5); White Blood Cell Count 7.3 10^3/uL (4.8-10.8)
[2023-09-27 17:01] LABS: Band Neutrophils 1 % (0-3); Eosinophils 2 % (0-6); Lymphocytes 33 % (20-51); Monocytes 10 % (2-9); Normal RBC Morphology Yes; Platelets Checked Yes; Segmented Neutrophils 54 % (42-75); Total Cells Counted 100
== END ==
LOC: REG 15:15
PROVIDERS: ATTENDING PHYSICIAN Student in an Organized Health Care Education/Training Program; FAMILY PHYSICIAN Internal Medicine
DX: B60.00 Babesiosis, unspecified (principal)
CPT/HCPCS: 36415; 85025; 87015; 87207

== ENCOUNTER → 2023-10-04 13:53 | Outpatient (REF) | payer MEDICARE, OTHER, SELFPAY ==
[2023-10-04 14:36] LABS: Platelet Count 251 10^3/uL (130-400); Reticulocyte Count 2.9 % (0.4-2.8)
[2023-10-04 15:06] LABS: ALT (SGPT) 70 U/L (0-50); AST (SGOT) 71 U/L (17-59); Albumin 3.8 g/dl (3.5-5.0); Alkaline Phosphatase 88 U/L (38-126); Blood Urea Nitrogen 16 mg/dl (9-20); Calcium 9.8 mg/dl (8.4-10.2); Carbon Dioxide 28 mmol/L (22-30); Chloride 98 mmol/L (98-107); Glucose 96 mg/dl (70-99); Potassium 4.6 mmol/L (3.5-5.1); Sodium 132 mmol/L (135-145); Total Protein 7.5 g/dl (6.3-8.2); eGFR > 60.00
== END ==
LOC: REG 13:53
PROVIDERS: ATTENDING PHYSICIAN Physician Assistant; FAMILY PHYSICIAN Internal Medicine
DX: B60.00 Babesiosis, unspecified (principal); D59.4 Other nonautoimmune hemolytic anemias; A69.20 Lyme disease, unspecified; E87.1 Hypo-osmolality and hyponatremia; I10 Essential (primary) hypertension; Z90.81 Acquired absence of spleen
CPT/HCPCS: 36415; 80053; 85045; 85049

== ENCOUNTER → 2023-10-18 13:09 | Outpatient (REF) | payer MEDICARE, OTHER, SELFPAY ==
[2023-10-18 14:08] LABS: % Basophils 1.1 % (0-2); % Eosinophils 1.8 % (0-6); % Immature Granulocytes 0.3 % (0-0.5); % Lymphocytes 37.6 % (20.5-51.1); % Monocytes 17.4 % (1.7-9.3); % Neutrophils 41.8 % (42.2-75.2); Absolute Basophils 0.1 10^3/uL (0-0.2); Absolute Eosinophils 0.1 10^3/uL (0-0.7); Absolute Lymphocytes 2.5 10^3/uL (1.2-3.4); Absolute Monocytes 1.2 10^3/uL (0.1-0.6); Absolute Neutrophils 2.8 10^3/uL (1.4-6.5); Hematocrit 29.7 % (39.0-52.0); Hemoglobin 10.1 g/dL (13.0-18.0); Mean Platelet Volume 10.3 fL (7.4-10.4); Nucleated Red Blood Cells % 0 % (-); Platelet Count 271 10^3/uL (130-400); Red Blood Cell Count 2.97 10^6/uL (4.70-6.10); Red Cell Dist. Width 13.6 % (11.5-14.5); Reticulocyte Count 4.1 % (0.4-2.8); White Blood Cell Count 6.6 10^3/uL (4.8-10.8)
[2023-10-18 14:33] LABS: ALT (SGPT) 54 U/L (0-50); AST (SGOT) 65 U/L (17-59); Albumin 3.8 g/dl (3.5-5.0); Alkaline Phosphatase 79 U/L (38-126); Blood Urea Nitrogen 17 mg/dl (9-20); Calcium 9.6 mg/dl (8.4-10.2); Carbon Dioxide 28 mmol/L (22-30); Chloride 100 mmol/L (98-107); Glucose 97 mg/dl (70-99); Potassium 4.7 mmol/L (3.5-5.1); Sodium 134 mmol/L (135-145); Total Bilirubin 1.2 mg/dl (0.2-1.3); Total Protein 7.1 g/dl (6.3-8.2); eGFR > 60.00
== END ==
LOC: REG 13:09
PROVIDERS: ATTENDING PHYSICIAN Physician Assistant
DX: R94.5 Abnormal results of liver function studies (principal); R79.89 Other specified abnormal findings of blood chemistry
CPT/HCPCS: 36415; 80053; 85025; 85045

== ENCOUNTER → 2023-11-05 06:57 | Outpatient (REF) | payer MEDICARE, OTHER, SELFPAY ==
[2023-11-05 08:06] LABS: ALT (SGPT) 80 U/L (0-50); AST (SGOT) 226 U/L (17-59); Albumin 3.9 g/dl (3.5-5.0); Alkaline Phosphatase 79 U/L (38-126); Direct Bilirubin 0.2 mg/dl (0.0-0.4); HDL Cholesterol 53 mg/dl; Iron 70 ug/dl (49-181); LDL Cholesterol, Calculated 82 mg/dl; Magnesium 1.9 mg/dl (1.6-2.3); Total Cholesterol 147 mg/dl (50-199); Total Protein 7.2 g/dl (6.3-8.2); Triglyceride 60 mg/dl (10-149); Very Low Density Lipoprotein 12 mg/dl (0-30)
[2023-11-05 08:15] LABS: Hematocrit 33.1 % (39.0-52.0); Hemoglobin 11.2 g/dL (13.0-18.0); Mean Corp Hgb Conc. 33.8 g/dL (33.0-37.0); Mean Corpuscular Hgb 33.3 pg (27.0-31.0); Mean Corpuscular Volume 98.5 fL (80.0-94.0); Mean Platelet Volume 10.2 fL (7.4-10.4); Platelet Count 234 10^3/uL (130-400); Red Blood Cell Count 3.36 10^6/uL (4.70-6.10); Red Cell Dist. Width 12.9 % (11.5-14.5); White Blood Cell Count 4.8 10^3/uL (4.8-10.8)
[2023-11-05 08:44] LABS: PSA, Total - Screen 1.69 ng/ml (0.0-4.0)
[2023-11-05 09:01] LABS: Erythrocyte Sed Rate 36 mm/hour (0-20)
[2023-11-05 09:20] LABS: Folate 19.3 ng/ml (2.76-20); Vitamin B12 810 pg/ml (239-931)
[2023-11-05 10:04] LABS: % Basophils 1.9 % (0-2); % Eosinophils 3.3 % (0-6); % Immature Granulocytes 0.2 % (0-0.5); % Lymphocytes 44.5 % (20.5-51.1); % Monocytes 19.2 % (1.7-9.3); % Neutrophils 30.9 % (42.2-75.2); Absolute Basophils 0.1 10^3/uL (0-0.2); Absolute Eosinophils 0.2 10^3/uL (0-0.7); Absolute Lymphocytes 2.1 10^3/uL (1.2-3.4); Absolute Monocytes 0.9 10^3/uL (0.1-0.6); Absolute Neutrophils 1.5 10^3/uL (1.4-6.5); Nucleated Red Blood Cells % 0 % (-); Reticulocyte Count 5.2 % (0.4-2.8)
== END ==
LOC: REG 06:57
PROVIDERS: ATTENDING PHYSICIAN Internal Medicine
DX: I10 Essential (primary) hypertension (principal); E78.00 Pure hypercholesterolemia, unspecified; Z90.81 Acquired absence of spleen; B60.00 Babesiosis, unspecified; D53.9 Nutritional anemia, unspecified; E53.8 Deficiency of other specified B group vitamins; R00.2 Palpitations; Z00.00 Encounter for general adult medical examination without abnormal findings; Z12.5 Encounter for screening for malignant neoplasm of prostate
CPT/HCPCS: 36415; 80061; 80076; 82607; 82728; 82746; 83540; 83735; 85025; 85045; 85652; G0103

== ENCOUNTER → 2023-11-11 11:07 | Outpatient (REF) | payer MEDICARE, OTHER, SELFPAY ==
[2023-11-11 12:06] LABS: ALT (SGPT) 68 U/L (0-50); AST (SGOT) 84 U/L (17-59); Albumin 4.1 g/dl (3.5-5.0); Alkaline Phosphatase 75 U/L (38-126); Creatine Phosphokinase 156 U/L (55-170); Direct Bilirubin 0.3 mg/dl (0.0-0.4); Total Protein 7.5 g/dl (6.3-8.2)
[2023-11-11 12:36] LABS: Hepatitis B Surface Antigen Negative (Negative)
[2023-11-11 12:54] LABS: Hepatitis C Antibody Negative (Negative)
[2023-11-11 21:37] LABS: Hepatitis B Core Ab, IgM Negative (Negative)
[2023-11-12 11:45] LABS: Hepatitis A IgM Antibody Negative (Negative)
== END ==
LOC: REG 11:07
PROVIDERS: ATTENDING PHYSICIAN Internal Medicine
DX: B60.00 Babesiosis, unspecified (principal); R74.01 Elevation of levels of liver transaminase levels
CPT/HCPCS: 36415; 80076; 82550; 86705; 86709; 86803; 87340

== ENCOUNTER → 2023-12-14 09:39 | Outpatient (REF) | payer MEDICARE, OTHER, SELFPAY ==
[2023-12-14 12:19] LABS: ALT (SGPT) 55 U/L (0-50); AST (SGOT) 53 U/L (17-59); Albumin 4.5 g/dl (3.5-5.0); Alkaline Phosphatase 86 U/L (38-126); Direct Bilirubin 0.3 mg/dl (0.0-0.4); Total Bilirubin 0.9 mg/dl (0.2-1.3)
== END ==
LOC: REG 09:39
PROVIDERS: ATTENDING PHYSICIAN Internal Medicine
DX: R94.5 Abnormal results of liver function studies (principal); R74.01 Elevation of levels of liver transaminase levels
CPT/HCPCS: 36415; 80076

== ENCOUNTER → 2024-05-24 11:19 | Outpatient (REF) | payer MEDICARE, OTHER, SELFPAY | LOC: HWRAD 11:19 | PROVIDERS: ATTENDING PHYSICIAN Physician Assistant Medical; FAMILY PHYSICIAN Internal Medicine | DX: R31.0 Gross hematuria (principal) | CPT/HCPCS: 76770 ==

== ENCOUNTER → 2024-06-06 07:00 | Outpatient (REF) | payer MEDICARE, OTHER, SELFPAY ==
[2024-06-06 08:59] LABS: Hematocrit 42.1 % (39.0-52.0); Hemoglobin 14.2 g/dL (13.0-18.0); Mean Corp Hgb Conc. 33.7 g/dL (33.0-37.0); Mean Corpuscular Hgb 30.5 pg (27.0-31.0); Mean Corpuscular Volume 90.5 fL (80.0-94.0); Mean Platelet Volume 9.9 fL (7.4-10.4); Platelet Count 251 10^3/uL (130-400); Red Blood Cell Count 4.65 10^6/uL (4.70-6.10); Red Cell Dist. Width 13.8 % (11.5-14.5); White Blood Cell Count 7.9 10^3/uL (4.8-10.8)
[2024-06-06 09:42] LABS: Blood Urea Nitrogen 19 mg/dl (9-20); Calcium 9.7 mg/dl (8.4-10.2); Carbon Dioxide 29 mmol/L (22-30); Chloride 100 mmol/L (98-107); Glucose 89 mg/dl (70-99); Potassium 4.5 mmol/L (3.5-5.1); Sodium 137 mmol/L (135-145); eGFR > 60.00
== END ==
LOC: SDSPAT 07:00
PROVIDERS: ATTENDING PHYSICIAN Specialist; FAMILY PHYSICIAN Internal Medicine
DX: Z01.818 Encounter for other preprocedural examination (principal)
CPT/HCPCS: 36415; 80048; 85027; 93005

== ENCOUNTER 2024-06-16 06:09 | Day surgery (SDC) | payer MEDICARE, OTHER, SELFPAY ==
[2024-06-06 14:06] VITALS: BMI 24.2
[2024-06-16] VITALS (11 sets, daily range): BP systolic 109–154; BP diastolic 76–115; BMI 24.2
[2024-06-16] MEDS: NORMOSOL-R/PLASMALYTE-A 1000 IV (06:46)
[2024-06-16] MEDS: FLOMAX 0.4 MG PO (08:39)
[2024-06-16] MEDS: Pyridium 200 MG PO (08:39)
== END 2024-06-16 09:50 | disposition home or self-care (01) ==
LOC: SDS 06:09
PROVIDERS: ATTENDING PHYSICIAN Specialist; FAMILY PHYSICIAN Internal Medicine
DX: N20.0 Calculus of kidney (principal); R31.0 Gross hematuria
CPT/HCPCS: 52332; 52351; 74018; 76000; C2617

== ENCOUNTER → 2024-11-22 07:33 | Outpatient (REF) | payer MEDICARE, OTHER, SELFPAY ==
[2024-11-22 09:27] LABS: ALT (SGPT) 41 U/L (0-50); AST (SGOT) 42 U/L (17-59); Albumin 4.3 g/dl (3.5-5.0); Alkaline Phosphatase 59 U/L (38-126); Blood Urea Nitrogen 19 mg/dl (9-20); Calcium 10.0 mg/dl (8.4-10.2); Carbon Dioxide 29 mmol/L (22-30); Chloride 102 mmol/L (98-107); Glucose 88 mg/dl (70-99); HDL Cholesterol 80 mg/dl; LDL Cholesterol, Calculated 82 mg/dl; Potassium 5.1 mmol/L (3.5-5.1); Sodium 133 mmol/L (135-145); Total Protein 7.4 g/dl (6.3-8.2); Very Low Density Lipoprotein 10 mg/dl (0-30); eGFR > 60.00
[2024-11-22 09:49] LABS: Hematocrit 41.8 % (39.0-52.0); Hemoglobin 14.2 g/dL (13.0-18.0); Mean Corp Hgb Conc. 34.0 g/dL (33.0-37.0); Mean Corpuscular Volume 90.9 fL (80.0-94.0); Nucleated Red Blood Cells % 0 % (-); Platelet Count 260 10^3/uL (130-400); Red Cell Dist. Width 13.6 % (11.5-14.5)
[2024-11-22 10:03] LABS: Urine Character Clear (Clear)
[2024-11-22 10:21] LABS: PSA, Total - Screen 1.74 ng/ml (0.0-4.0); TSH 3.36 uIU/ml (0.47-4.68)
[2024-11-22 10:57] LABS: Urine Red Blood Cell 0-2 /HPF (0-2); Urine Squamous Cell 0-2 /LPF (Few); Urine White Cell 0-2 /HPF (0-5)
== END ==
LOC: REG 07:33
PROVIDERS: ATTENDING PHYSICIAN Internal Medicine
DX: Z86.79 Personal history of other diseases of the circulatory system (principal); E78.00 Pure hypercholesterolemia, unspecified; Z82.49 Family history of ischemic heart disease and other diseases of the circulatory system; N40.0 Benign prostatic hyperplasia without lower urinary tract symptoms; S39.012S Strain of muscle, fascia and tendon of lower back, sequela; M21.611 Bunion of right foot; M21.612 Bunion of left foot; Z90.81 Acquired absence of spleen; Z00.00 Encounter for general adult medical examination without abnormal findings; Z12.5 Encounter for screening for malignant neoplasm of prostate
CPT/HCPCS: 36415; 80053; 80061; 81003; 81015; 84443; 85025; G0103

== ENCOUNTER 2025-01-05 06:11 | Day surgery (SDC) | payer MEDICARE, OTHER, SELFPAY | END 2025-01-05 08:59 | disposition home or self-care (01) | LOC: GI 06:11 | PROVIDERS: ATTENDING PHYSICIAN Internal Medicine Gastroenterology | DX: Z12.11 Encounter for screening for malignant neoplasm of colon (principal); K57.30 Diverticulosis of large intestine without perforation or abscess without bleeding; K64.8 Other hemorrhoids; D12.2 Benign neoplasm of ascending colon | CPT/HCPCS: 45380; 88305 ==